=== PATIENT | female | born 2000 | race Caucasian/White ===

== ENCOUNTER → 2020-06-05 | Outpatient (CLI) | payer MEDICAID, SELFPAY ==
[2020-06-05 10:22] VITALS: BMI 20.9
[2020-06-07 06:08] LABS: Chlamydia By Nucleic Acid AMP Negative (Negative)
[2020-06-07 12:16] LABS: Gonococcus By Nucleic Acid AMP Negative (Negative)
== END | disposition home or self-care (01) ==
PROVIDERS: PCP Pediatrics; Referring Provider Obstetrics & Gynecology; Visit Provider Obstetrics & Gynecology
DX: Z34.01 Encounter for supervision of normal first pregnancy, first trimester (principal)
CPT/HCPCS: 87491; 87591

== ENCOUNTER → 2020-06-19 09:10 | Outpatient (CLI) | payer MEDICAID, SELFPAY ==
[2020-06-05 10:22] VITALS: BMI 20.9
[2020-06-19 10:14] LABS: Absolute Lymphocyte Count 1.98 X10^3/uL (0.83-4.51); Absolute Neutrophil Count 5.4 X10^3/uL (2.0-7.7); Basophil# 0.04 X10^3/uL; Basophil% 0.5 % (0-1); Eosinophil# 0.33 X10^3/uL; Eosinophils% 3.9 % (0-5); Hematocrit 36.9 % (37-47); Hemoglobin 12.8 g/dL (12.0-15.0); Lymphocyte # 1.98 X10^3/ul (4.0); Lymphocyte % 23.2 % (19-41); Mean Corp Hgb Conc 34.7 g/dL (32-36); Mean Corpuscular Hgb 32.8 pg (27.0-32.0); Mean Corpuscular Volume 94.6 fL (81-99); Mean Platelet Vol. 10.9 fl (6.2-12.0); Monocyte# 0.76 X10^3/uL; Monocyte% 8.9 % (0-10); NRBC Flagged by Analyzer 0 % (0-5); Neutrophil # 5.41 X10^3/uL (2.7-7.7); Neutrophil % 63.1 % (47-70); Platelet Count 239 K/mm3 (150-450); RBC Distribution Width SD 41.4 fl (35.1-43.9); White Blood Count 8.6 K/mm3 (4.4-11.0)
[2020-06-19 10:46] LABS: Amphetamine Urine VISTA NEGATIVE (<1000 ng/mL); Barbiturate Urine VISTA NEGATIVE (< 200 ng/mL); Benzodiazepine Urine VISTA NEGATIVE (< 200 ng/mL); Cocaine Urine VISTA NEGATIVE (< 300 ng/mL); Ecstacy Urine VISTA NEGATIVE (< 500 ng/mL); Methadone Urine VISTA NEGATIVE (< 300 ng/mL); PCP Urine VISTA NEGATIVE (< 25 ng/mL); THC Urine VISTA NEGATIVE (< 50 ng/mL); Vista UDS pH Range 6
[2020-06-19 11:32] LABS: HIV - WCH Non-Reactive (Nonreactive); Hepatitis B Surface Antigen Non-Reactive (Nonreactive); Hepatitis C Antibody Non-Reactive (Nonreactive); Rubella IgG Reactive (Nonreactive); Syphilis Antibodies Non-reactive
== END ==
PROVIDERS: Obstetrics & Gynecology; PCP Pediatrics; Referring Provider Obstetrics & Gynecology; Visit Provider Obstetrics & Gynecology
DX: Z34.81 Encounter for supervision of other normal pregnancy, first trimester (principal)
CPT/HCPCS: 36415; 80307; 85025; 86703; 86762; 86803; 86850; 86900; 86901; 87086; 87088; 87340

== ENCOUNTER → 2020-10-09 11:53 | Outpatient (CLI) | payer MEDICAID, SELFPAY ==
[2020-09-19 10:32] VITALS: BMI 21.6
[2020-10-09 12:46] LABS: Absolute Lymphocyte Count 1.97 X10^3/uL (0.83-4.51); Absolute Neutrophil Count 7.9 X10^3/uL (2.0-7.7); Basophil# 0.05 X10^3/uL; Basophil% 0.4 % (0-1); Eosinophil# 0.52 X10^3/uL; Eosinophils% 4.6 % (0-5); Hematocrit 34.2 % (37-47); Hemoglobin 11.6 g/dL (12.0-15.0); Lymphocyte # 1.97 X10^3/ul (0.83-4.51); Lymphocyte % 17.3 % (19-41); Mean Corp Hgb Conc 33.9 g/dL (32-36); Mean Corpuscular Hgb 32.4 pg (27.0-32.0); Mean Corpuscular Volume 95.5 fL (81-99); Mean Platelet Vol. 11.4 fl (6.2-12.0); Monocyte# 0.86 X10^3/uL; Monocyte% 7.5 % (0-10); NRBC Flagged by Analyzer 0 % (0-5); Neutrophil % 69.1 % (47-70); Platelet Count 259 K/mm3 (150-450); RBC Distribution Width CV 12.7 % (11.6-14.6); Red Blood Count 3.58 M/mm3 (4.2-5.4); White Blood Count 11.4 K/mm3 (4.4-11.0)
[2020-10-09 12:55] LABS: Glucose Challenge Gest 1H 50g 110 mg/dL (70-140)
== END ==
PROVIDERS: Obstetrics & Gynecology; Referring Provider Obstetrics & Gynecology; Visit Provider Obstetrics & Gynecology
DX: Z34.02 Encounter for supervision of normal first pregnancy, second trimester (principal); Z13.1 Encounter for screening for diabetes mellitus
CPT/HCPCS: 36415; 82950; 85025

== ENCOUNTER → 2020-12-04 08:04 | Outpatient (CLI) | payer MEDICAID, SELFPAY ==
--- NOTE | 2020-12-04 08:09 | US_ITS ---
STUDY: SECOND AND THIRD TRIMESTER OBSTETRICAL ULTRASOUND - LIMITED REASON FOR EXAM: Female, 20 years old . growth. LMP: 04/02/2020. PRIOR ULTRASOUND: None. TECHNIQUE: Transabdominal TECHNICAL QUALITY: Adequate. FINDINGS: There is a single intrauterine fetus. The fetus is in a cephalic presentation. There is demonstrated cardiac activity with a heart rate of 141 bpm. There is a normal amniotic fluid volume. The largest amniotic fluid pocket measures 7.6 cm. The amniotic fluid index (FABRIZIO) is 20 cm. The placenta is posterior and fundal in location and is not low lying. There are Grade 2 placental changes. The cervix measures 3.4 cm in length. BIOMETRY: BPD: 8.2 cm: 32 weeks, 6 days HC: 29.99 cm: 33 weeks, 1 days AC: 29.56 cm: 33 weeks, 3 days FL: 6.63 cm: 34 weeks, 0 days Age by LMP: 35 weeks, 1 days. MASON by LMP: 01/07/2021. age by current US: 33 weeks, 2 days. MASON by current US: 01/20/2021. Estimated weight: 2263 grams, +/- 339 grams, 15 percentile. US/OB Limited With Biometrics IMPRESSION: Single live intrauterine gestation with a mean gestational age of 33 weeks and 2 days. Electronically Signed: Boyd Buck MD at 10:49 EDT , Service support ,
== END ==
PROVIDERS: Referring Provider Obstetrics & Gynecology; Visit Provider Obstetrics & Gynecology
DX: Z34.02 Encounter for supervision of normal first pregnancy, second trimester (principal)
CPT/HCPCS: 76816

== ENCOUNTER 2020-12-10 09:00 | Outpatient (CLI) | payer MEDICAID, SELFPAY ==
[2020-12-10 09:12] VITALS: BP 115/76; PULSE 84; TEMP 36.8; O2SAT 99; BMI 26.2
[2020-12-10 09:49] LABS: ROM Internal Control Test YES-OK TO RESULT pt. (Internal QC); ROM Patient Test Negative (Negative)
--- NOTE | 2020-12-10 10:19 | OB.TRI.PN_ITS ---
Progress Notes Date of Service: 12/10/20 Progress Note: Patient presents for triage evaluation secondary to possible ROM FHT: 140 Moderate variability reactive no decelerations category I tracing [place]: no regular Contractions Assessment and plan: membranes intact false labor negative ROM Reactive NST, reassuring maternal and status patient discharged to home to follow-up as schedule. See problem list details for additional plan information. Laboratory Studies: Laboratory Tests 12/10/20 Range/Units 09:15 Vag Amniotic Fld Detect Negative (Negative) Charges/Coding Procedures Urinary/Genital 52xxx-59xxx: 14539-11 non-stress test Interp
== END 2020-12-10 10:05 | disposition home or self-care (01) ==
LOC: WPOUT 09:10 → WP 09:10
PROVIDERS: Referring Provider Obstetrics & Gynecology; Visit Provider Obstetrics & Gynecology
DX: Z03.71 Encounter for suspected problem with amniotic cavity and membrane ruled out (principal)
CPT/HCPCS: 59025; 59050; 84112

== ENCOUNTER → 2020-12-13 | Outpatient (CLI) | payer MEDICAID, SELFPAY | END | disposition home or self-care (01) | PROVIDERS: Visit Provider Obstetrics & Gynecology | DX: Z34.02 Encounter for supervision of normal first pregnancy, second trimester (principal) | CPT/HCPCS: 87081 ==

== ENCOUNTER 2020-12-20 10:30 | Outpatient (CLI) | payer MEDICAID, SELFPAY ==
[2020-12-20 10:39] VITALS: BMI 25.7
[2020-12-20 10:44] VITALS: BP 113/59; PULSE 78; TEMP 36.5; O2SAT 98
[2020-12-20 10:48] VITALS: BP 113/59; PULSE 78; TEMP 36.5
[2020-12-20 11:12] LABS: ROM Internal Control Test YES-OK TO RESULT pt. (Internal QC); ROM Patient Test Negative (Negative)
--- NOTE | 2020-12-24 06:58 | OB.TRI.PN_ITS ---
Progress Notes Progress Note: Patient presents for triage evaluation secondary to false labor FHT: 130 Moderate variability reactive no decelerations category I tracing [place]: q 3-5 Contractions Assessment and plan: false labor no cervical change Reactive NST, reassuring maternal and status patient discharged to home to follow-up as scheduled. See problem list details for additional plan information. Laboratory Studies: Laboratory Tests 12/20/20 Range/Units 10:45 Vag Amniotic Fld Detect Negative (Negative) Charges/Coding Procedures Urinary/Genital 52xxx-59xxx: 07713-43 non-stress test Interp Assessment & Plan (1) False labor:
== END 2020-12-20 11:27 | disposition home or self-care (01) ==
LOC: WPOUT 10:38 → WP 10:38
PROVIDERS: Obstetrics & Gynecology; Visit Provider Obstetrics & Gynecology
DX: O47.9 False labor, unspecified (principal); Z3A.00 Weeks of gestation of pregnancy not specified
CPT/HCPCS: 59025; 59050; 84112; 99218; G0378

== ENCOUNTER → 2020-12-28 10:21 | Outpatient (CLI) | payer MEDICAID, SELFPAY | PROVIDERS: Referring Provider Obstetrics & Gynecology; Visit Provider Obstetrics & Gynecology | DX: Z34.93 Encounter for supervision of normal pregnancy, unspecified, third trimester (principal); Z3A.37 37 weeks gestation of pregnancy | CPT/HCPCS: 87635; C9803; U0005; U0003 ==

== ENCOUNTER → 2020-12-29 14:25 | Outpatient (CLI) | payer MEDICAID, SELFPAY ==
--- NOTE | 2020-12-29 14:26 | US_ITS ---
STUDY: SECOND AND THIRD TRIMESTER OBSTETRICAL ULTRASOUND - LIMITED REASON FOR EXAM: Female, 20 years old. growth. Small for dates. LMP: 04/02/2020 PRIOR ULTRASOUND: 02/03/2021 TECHNIQUE: Transabdominal TECHNICAL QUALITY: Adequate. FINDINGS: There is a single intrauterine fetus. The fetus is in a cephalic presentation. There is demonstrated cardiac activity with a heart rate of 138 bpm. There is a normal amniotic fluid volume. The largest amniotic fluid pocket measures 5.85 cm. The amniotic fluid index (FABRIZIO) is 14.3 cm. The placenta is posterior in location and is not low lying. There are Grade 2 placental changes. The cervix is obscured. BIOMETRY: BPD: 8.86 cm: 35 weeks, 5 days HC: 32.26 cm: 36 weeks, 3 days AC: 32.13 cm: 36 weeks, 0 days FL: 7.16 cm: 36 weeks, 4 days Age by LMP: 38 weeks, 5 days. MASON by LMP: 01/07/2021. age by prior US: 36 weeks, 6 days. MASON by prior US: 01/20/2021. age by current US: 36 weeks, 3 days. MASON by current US: 01/23/2021. Estimated weight: 2906 grams, +/- 436 grams, 15 percentile. Gender: Indeterminant US/OB Limited With Biometrics IMPRESSION: 1. Live single intrauterine at 36 weeks, 3 days. MASON is 01/23/2021. There is adequate interval growth since the initial ultrasound. 2. EFW of 2906 g. 3. FABRIZIO of 14.3 cm. 4. Posterior grade 2 placenta. 5. Vertex presentation. Electronically Signed: Chandler Guadalupe DO at 16:05 EDT Tel [phone], Service support ,
== END ==
PROVIDERS: Referring Provider Obstetrics & Gynecology; Visit Provider Obstetrics & Gynecology
DX: O26.843 Uterine size-date discrepancy, third trimester (principal); Z3A.36 36 weeks gestation of pregnancy
CPT/HCPCS: 76816

== ENCOUNTER 2021-01-02 18:10 | Inpatient (IN) | payer MEDICAID, SELFPAY ==
[2021-01-02] VITALS (30 sets, daily range): BP systolic 108–137; BP diastolic 55–82; PULSE 65–98; TEMP 35.8–37.5; O2SAT 83–100; BMI 26.4
[2021-01-02 18:07] LABS: ROM Internal Control Test YES-OK TO RESULT pt. (Internal QC)
[2021-01-02 18:08] LABS: ROM Patient Test POSITIVE (Negative)
[2021-01-02] MEDS: Lactated Ringers 1,000 ML 50 ML IV (18:34)
[2021-01-02 18:42] LABS: Absolute Lymphocyte Count 2.05 X10^3/uL (0.83-4.51); Absolute Neutrophil Count 10.9 X10^3/uL (2.0-7.7); Basophil# 0.06 X10^3/uL; Basophil% 0.4 % (0-1); Eosinophil# 0.34 X10^3/uL; Eosinophils% 2.3 % (0-5); Hematocrit 37.5 % (37-47); Hemoglobin 12.5 g/dL (12.0-15.0); Lymphocyte # 2.05 X10^3/ul (0.83-4.51); Mean Corp Hgb Conc 33.3 g/dL (32-36); Mean Corpuscular Volume 93.1 fL (81-99); Mean Platelet Vol. 10.7 fl (6.2-12.0); Monocyte% 8.2 % (0-10); NRBC Flagged by Analyzer 0 % (0-5); Neutrophil # 10.88 X10^3/uL (2.7-7.7); Neutrophil % 74.3 % (47-70); Platelet Count 396 K/mm3 (150-450); RBC Distribution Width CV 12.7 % (11.6-14.6); RBC Distribution Width SD 43.4 fl (35.1-43.9); Red Blood Count 4.03 M/mm3 (4.2-5.4); White Blood Count 14.6 K/mm3 (4.4-11.0)
--- NOTE | 2021-01-02 20:11 | HP.PCM.OB_ITS ---
HPI - General General Date of Admission: 01/02/21 HPI Narrative INA SAMANIEGO, is a 20 F at 39/2 who presents with rupture of membranes Maternal Data Information MASON Calculator Estimated Delivery Date Method Current WG Current Estimate 01/07/21 LMP (Certain) 39w 2d Other Estimates 01/12/21 Ultrasound #1 38w 4d PFSH PFSH Medical History (Updated 01/02/21 @ 20:[address] Radha Martin MD) Anxiety Genital herpes affecting Lab test negative for COVID-19 virus Home Medications valacyclovir 1 gram tablet 1,000 mg PO BID PRN 5 Days #20 tab 08/13/19 [Rx Last Taken 01/02/21] sertraline 50 mg tablet 50 mg PO DAILY #30 tab 12/07/20 [Rx Last Taken 01/02/21] Allergy/AdvReac Type Severity Reaction Status Date / Time No Known Allergies Allergy Verified 12/28/20 10:50 Family History Aunt Breast cancer Surgical History No significant past surgical history Social History adopted: No household members: family housing: house current occupational status: unemployed pets and animals: Yes sexually active: Yes Smoking Status: Light Smoker (<10/day) second hand exposure: Yes alcohol intake: never caffeine: Yes what type of physical activity do you participate in: none seatbelt use: always do you feel safe at home: Yes additional social history: Rustam Roberson History 1 Elective abortions Hx Para 0 Spontaneous abortions Hx # Term Pregnancies Ectopic pregnancies Hx # Pregnancies Multiple births # of living children Visit Details Expected Delivery Route/Plan Labor Preferences- CB/BF classes: encouraged, may do through [place] labor support person: Da labor intervention preferences: open to standard interventions pain management options preferred: epidural cut cord/dad catch: yes : yes PP control planned: discussed discussed possible routes of delivery and associated risks: discussed possible delivery modalities and possible indications for each including R/B/A of , VAVD, FAVD, and CS. questions answered. special requests: [] Plans covid vaccine: non immune counseled regarding risk of covid in vs vaccination and declined vaccination flu vaccine: no tdap vaccine: 11/15 rhogam: NA LARC form signed: yes movement and labor precautions reviewed. Problem list reviewed and updated with the most current plan of care details and appropriate orders placed. Relevant counseling for the gestational age provided. Continue routine care and follow up unless otherwise noted in visit notes/problem list details OB Flowsheet Initial Weight: 128 lb Date -?-?-?-?-?-?-?-?-?-?-?-?- EGA Weight BP Urine Prot -?-?-?-?-?-?-?-?-?-?-?-?- Glucose FHR FuHt Pres Dilation -?-?-?-?-?-?-?-?-?-?-?-?- Effaced St Visit Note 06/05/20 -?-?-?-?-?-?-?-?-?-?-?-?- 9w 1d 127 lb 8 oz (-8 oz) 120/70 -?-?-?-?-?-?-?-?-?-?-?-?- 160 -?-?-?-?-?-?-?-?-?-?-?-?- GP - CRL 16mm co nsistent with LMP. 07/04/20 -?-?-?-?-?-?-?-?-?-?-?-?- 13w 2d 129 lb (+16 oz) 110/82 Negative -?-?-?-?-?-?-?-?-?-?-?-?- Negative 164 -?-?-?-?-?-?-?-?-?-?-?-?- MH-No Vb, LOF. Nausea improved. Reviewed normal labs. MFM US ordered. 08/02/20 -?-?-?-?-?-?-?-?-?-?-?-?- 17w 3d 132 lb (+4 lb) 110/72 Negative -?-?-?-?-?-?-?-?-?-?-?-?- Negative 145 -?-?-?-?-?-?-?-?-?-?-?-?- GP - no cramping or bleeding. Having a girl! Christy Macias. Anatomy scan 08/21. 08/21/20 -?-?-?-?-?-?-?-?-?-?-?-?- 20w 1d 137 lb 2 oz (+9 lb 2 oz) 108/62 Negative -?-?-?-?-?-?-?-?-?-?-?-?- Negative 156 -?-?-?-?-?-?-?-?-?-?-?-?- -No VB, LOF. F eeling FM now. Had MFM US earlier today 09/19/20 -?-?-?-?-?-?-?-?-?-?-?-?- 24w 2d 141 lb (+13 lb) 116/82 Trace -?-?-?-?-?-?-?-?-?-?-?-?- Negative -?-?-?-?-?-?-?-?-?-?-?-?- SM- no vb lof go od fm no regular ctx 10/17/20 -?-?-?-?-?-?-?-?-?-?-?-?- 28w 2d 150 lb 4 oz (+22 lb 4 oz) 120/62 Negative -?-?-?-?-?-?-?-?-?-?-?-?- Negative 154 28 -?-?-?-?-?-?-?-?-?-?-?-?- -No VB, LOF. good FM. Declines tdap. LARC signed. Nl 28 wk labs. 10/30/20 -?-?-?-?-?-?-?-?-?-?-?-?- 30w 1d 148 lb (+20 lb) 102/82 Negative -?-?-?-?-?-?-?-?-?-?-?-?- Negative 145 30 -?-?-?-?-?-?-?-?-?-?-?-?- SM- no vb lof go od fm no reuglar ctx 11/15/20 -?-?-?-?-?-?-?-?-?-?-?-?- 32w 3d 151 lb 6 oz (+23 lb 6 oz) 118/72 Negative -?-?-?-?-?-?-?-?-?-?-?-?- Negative 145 32 -?-?-?-?-?-?-?-?-?-?-?-?- GP - no LOF, VB, dFM, ctx. TDAP today. 11/30/20 -?-?-?-?-?-?-?-?-?-?-?-?- 34w 4d 155 lb (+27 lb) 120/74 -?-?-?-?-?-?-?-?-?-?-?-?- 145 32 -?-?-?-?-?-?-?-?-?-?-?-?- SM- no vb lof go od fm no regular ctx check growth us 12/07/20 -?-?-?-?-?-?-?-?-?-?-?-?- 35w 4d 158 lb 6 oz (+30 lb 6 oz) 120/76 Negative -?-?-?-?-?-?-?-?-?-?-?-?- Negative 150 35 -?-?-?-?-?-?-?-?-?-?-?-?- GP - no LOF, VB, DFM, ctx. Discussed anxiety - started ginaofkory. Evgeny nicholson. 12/13/20 -?-?-?-?-?-?-?-?-?-?-?-?- 36w 3d 155 lb (+27 lb) 110/72 Negative -?-?-?-?-?-?-?-?-?-?-?-?- Negative 130 36 Cephalic 0 .5 -?-?-?-?-?-?-?-?-?-?-?-?- 50 -3 GP - no LO F, VB, DFM, ctx. Discussed labor preferences and routes of delivery 12/22/20 -?-?-?-?-?-?-?-?-?-?-?-?- 37w 5d 157 lb (+29 lb) 120/72 Negative -?-?-?-?-?-?-?-?-?-?-?-?- Negative 130 36 Cephalic 1 -?-?-?-?-?-?-?-?-?-?-?-?- SM- no vb lof go od fm no reuglar ctx 12/28/20 -?-?-?-?-?-?-?-?-?-?-?-?- 38w 4d 160 lb (+32 lb) 120/68 Negative -?-?-?-?-?-?-?-?-?-?-?-?- Negative 140 36 Cephalic -?-?-?-?-?-?-?-?-?-?-?-?- SM- no vb lof go od fm no reuglar ctx same FH will repeat us 01/02/21 -?-?-?-?-?-?-?-?-?-?-?-?- 39w 2d 158 lb 11.725 oz (+30 lb 11.725 oz) 131/80 128/82 -?-?-?-?-?-?-?-?-?-?-?-?- -?-?-?-?-?-?-?-?-?-?-?-?- NST FHR Rate Baby A Baseline: 130 Variability:: Moderate Accelerations:: 15 x 15 Decelerations:: None NST Reactive:: Yes FHR Category:: Category I Uterine Activity:: q3-5min ROS Eyes Eyes: Reports systems reviewed and no addt'l complaints, except as documented ENT HEENT: Reports systems reviewed and no addt'l complaints, except as documented Cardiovascular Cardiovascular: Reports systems reviewed and no addt'l complaints, except as documented Respiratory/Chest Respiratory/Chest: Reports systems reviewed and no addt'l complaints, except as documented Gastrointestinal Gastrointestinal: Reports systems reviewed and no addt'l complaints, except as documented Genitourinary Genitourinary: Reports systems reviewed and no addt'l complaints, except as documented Musculoskeletal Musculoskeletal: Reports systems reviewed and no addt'l complaints, except as documented Integumentary Integumentary: Reports systems reviewed and no addt'l complaints, except as documented Neurologic Neurologic: Reports systems reviewed and no addt'l complaints, except as documented Psychiatric Psychiatric: Reports systems reviewed and no addt'l complaints, except as documented Endocrine Endocrinology: Reports systems reviewed and no addt'l complaints, except as documented Hematologic/Lymphatic Hematologic/Lymphatic: Reports systems reviewed and no addt'l complaints, except as documented Allergic/Immunologic Allergic/Immunologic: Reports systems reviewed and no addt'l complaints, except as documented Vital Signs Vital Signs Vital Signs: 01/02/21 18:09 01/02/21 18:10 01/02/21 19:15 Temperature 98.5 F Temperature Source Temporal Pulse Rate 75 Blood Pressure 131/80 H 128/82 H BP Systolic 131 128 BP Diastolic 80 82 Pulse Ox 98 01/02/21 19:16 01/02/21 19:17 Temperature 97.6 F L Temperature Source Temporal Pulse Rate 65 70 Blood Pressure BP Systolic BP Diastolic Pulse Ox 98 99 Weight Weight: 158 lb 11.725 oz Body Mass Index (BMI) 26.4 Physical Exam Const alert, oriented x3, no apparent distress, average body habitus, healthy appearing and well nourished HEENT normocephalic and moist oral mucous membranes Head and Scalp: atraumatic Eyes PERRL and EOMs intact bilaterally Neck full ROM Resp normal respiratory effort, no retractions and no use of accessory muscles Cardio regular rate and regular rhythm GI soft to palpation, non-tender and non-distended Extremity normal to inspection and full ROM Skin no rashes or lesions noted Neuro no focal motor deficits and no sensory deficits noted Psych mental status grossly normal, affect normal, speech normal and activity/motor behavior normal Labs Labs Labs: Blood Type O POSITIVE Antibody Screen NEGATIVE Hct 37.5 % (37-47) Hgb 12.5 g/dL (12.0-15.0) Obstetrics US Syphilis Total Ab Non-reactive Rubella IgG Antibody Reactive (Nonreactive) Hep Bs Antigen Non-Reactive (Nonreactive) Neisseria gonorrhoeae DNA ([facility]) Negative (Negative) HIV 1&2 Antibody Non-Reactive (Nonreactive) C.trachomatis DNA (PCR) Negative (Negative) Glucose 1 Hr 50 gm 110 mg/dL (70-140) Miscellaneous Test Assessment & Plan (1) Lab test negative for COVID-19 virus: (2) Uterine size-date discrepancy, third trimester: COMMENT: growth US nl (3) Tobacco smoking affecting : QUALIFIERS: Trimester: second trimester Qualified Code(s): O99.332 - Smoking (tobacco) complicating , second trimester COMMENT: patient has cut back since she found out; exposure to second hand smoke; 07/04 quit; NL growth 11/30/20 (4) Supervision of normal : QUALIFIERS: Normal : normal first Trimester: second trimester Qualified Code(s): Z34.02 - Encounter for supervision of normal first , second trimester COMMENT: PRR MASON: 01/07/21 Girl! Christy Macias Ficamilo: Da (5) Genital herpes affecting : QUALIFIERS: Trimester: second trimester Qualified Code(s): O98.312 - Other infections with a predominantly sexual mode of transmission complicating , second trimester; A60.09 - Herpesviral infection of other urogenital tract COMMENT: needs Valtrex starting at 36 weeks (6) Anxiety: COMMENT: not on medication- pt states that her dog helps her manage her anxiety; stable (7) : QUALIFIERS: Weeks of gestation: 37 weeks Qualified Code(s): Z3A.37 - 37 weeks gestation of COMMENT: genetic-low risk female, declines carrier testing, anatomy nl; GBS neg (8) Full-term premature rupture of membranes: PLAN: Patient presents with PROM, plan expectant management for , pitocin if needed. Pain management: plans epidural. GBS negative. Management of any complications: none I have reviewed the [facility] and made any clinically relevant updates.
[2021-01-02] MEDS: Lactated Ringers 500 ML 999 ML IV ×2 (21:01→21:55)
[2021-01-02] MEDS: fentaNYL-bupivacaine (epidural) 100 ML BAG EPIDURAL (21:47)
[2021-01-03] VITALS (34 sets, daily range): BP systolic 97–137; BP diastolic 50–85; PULSE 57–112; RESP 16–18; TEMP 35.9–36.9; O2SAT 82–100
[2021-01-03] MEDS: fentaNYL-bupivacaine (epidural) 100 ML BAG EPIDURAL ×2 (02:55→07:16)
[2021-01-03] MEDS: Lactated Ringers 1,000 ML 200 ML IV ×2 (02:55→08:28)
[2021-01-03] MEDS: Oxytocin 30 units/NS 500 ml 30 UNITS/500 ML IV.SOLN 334 UNITS IV (09:25)
[2021-01-03] MEDS: Methylergonovine 0.2 MG/ML Ampul IM (09:28)
--- NOTE | 2021-01-03 10:20 | EX.PCM.OBRPT ---
Assessment & Plan (1) Spontaneous vaginal delivery: COMMENT: GP IAL 01/03 Girl-Christy (2) Full-term premature rupture of membranes: (3) Lab test negative for COVID-19 virus: (4) Uterine size-date discrepancy, third trimester: COMMENT: growth US nl (5) False labor: (6) Tobacco smoking affecting : QUALIFIERS: Trimester: second trimester Qualified Code(s): O99.332 - Smoking (tobacco) complicating , second trimester COMMENT: patient has cut back since she found out; exposure to second hand smoke; 07/04 quit; NL growth 11/30/20 (7) Supervision of normal : QUALIFIERS: Normal : normal first Trimester: second trimester Qualified Code(s): Z34.02 - Encounter for supervision of normal first , second trimester COMMENT: PRR MASON: 01/07/21 Girl! Christy Macias Fiance: Da (8) Genital herpes affecting : QUALIFIERS: Trimester: second trimester Qualified Code(s): O98.312 - Other infections with a predominantly sexual mode of transmission complicating , second trimester; A60.09 - Herpesviral infection of other urogenital tract COMMENT: needs Valtrex starting at 36 weeks (9) Anxiety: COMMENT: not on medication- pt states that her dog helps her manage her anxiety; stable (10) : QUALIFIERS: Weeks of gestation: 37 weeks Qualified Code(s): Z3A.37 - 37 weeks gestation of COMMENT: genetic-low risk female, declines carrier testing, anatomy nl; GBS neg Maternal Data Information MASON Calculator Estimated Delivery Date Method Current WG Current Estimate 01/07/21 LMP (Certain) 39w 3d Other Estimates 01/12/21 Ultrasound #1 38w 5d Vaginal Delivery Maternal Presentation Maternal Presentation: Active Labor Maternal Presentation: 20-year-old G1, P0 at 39 weeks gestation admitted in active labor. Patient made cervical change to complete dilation without augmentation. Operative Information Date of Procedure: 01/03/21 Pre-Operative Diagnosis: Term , active labor Post-Operative Diagnosis: Same Surgery / Procedure Performed: Spontaneous Vaginal Delivery Type of Anesthesia: Epidural Drain: Madrigal to straight drain Estimated Blood Loss: 300 Findings Description of Procedure: Patient began pushing and delivered the head in the RELL presentation. The head was delivered atraumatically and a loose nuchal cord ?1 was identified and delivered through. The anterior and posterior shoulders delivered without complication followed by the rest of the infant and the was placed on the maternal abdomen. Delayed cord clamping was employed for approximately 60 seconds. Cord was clamped and cut and gentle traction was applied to the cord and the placenta delivered spontaneously immediately following it was noted to be intact with three-vessel cord. The perineum and vagina were inspected and a left periurethral laceration was noted and repaired with an interrupted stitch of 3-0 Vicryl Rapide suture. EBL was 300 cc. Patient and tolerated delivery well. Presentation: Vertex and RELL Amniotic Membrane Rupture Type: Spontaneous Amniotic Fluid Description: Clear Placental Delivery Description: Spontaneous Placenta Disposition: [facility] Cord Vessel Description: 3 Vessels Cord Entanglement: Around neck x 1, loose Nuchal Cord Compression: Without compression Infant A Gender: Female Delayed Cord Clamping: Yes Post Vaginal Delivery Medications Given After Delivery: IV Pitocin and IM Methergin Episiotomy Description: None Laceration: Periurethral Extnsion/lac (left) and 1st degree Complication Complications: None Procedures Urinary/Genital 52xxx-59xxx: 61161 Vaginal Delivery+PP Care([facility])
--- NOTE | 2021-01-03 10:23 | PCM.DC ---
Discharge Instructions Diet Discharge Diet: No restrictions Activity Discharge Activity: Return to Normal Activity, May Not Drive (while taking narcotic pain medications.) and May Shower May resume sexual activity in: 4-6 weeks Dressing / Incision Call your doctor if your incision/area has: Continuous Slow Oozing, Sudden Increased Bleeding, Increased Pain/ Swelling, Increased Redness and Foul Smelling Discharge Follow Up Care When: Call to make an appointment with your doctor in 6 weeks. If you had elevated Blood Pressure or 4th degree laceration you will need to be seen in 2 weeks. Test Results: Test results from this visit will be discussed in further detail at your follow-up appointment, if applicable. Discharge Plan Admission Admit Date/Time: 01/02/21 18:10 Primary Reason for Your Visit: Labor Attending Provider: Radha Martin Primary Care Provider: Care Physician,Jennie Primary Instructions Patient Instructions: After a Vaginal Discharge Orders/Prescriptions Prescriptions: New ibuprofen 800 mg tablet 800 mg PO Q8H PRN (Reason: pain) Qty: 60 RF: 1 Continued sertraline [Zoloft] 50 mg tablet 50 mg PO DAILY Qty: 30 RF: 6 valacyclovir [Valtrex] 1 gram tablet 1,000 mg PO BID PRN (Reason: genital herpes) 5 Days Qty: 20 RF: 3 Referrals / Follow Up: Care Physician,No Primary [Primary Care Provider] -
[2021-01-03] MEDS: 0.9% Saline Lock 10 ML Syringe IV ×2 (11:37→13:04)
[2021-01-03] MEDS: Ondansetron 4 MG/2 ML Vial IV (11:37)
[2021-01-03] MEDS: Acetaminophen 500 MG Tablet 1000 MG PO ×2 (13:03→21:41)
[2021-01-04 00:35] VITALS: BP 106/34; PULSE 71; RESP 18; TEMP 36.6
[2021-01-04 04:24] VITALS: BP 96/53; PULSE 72; RESP 16
[2021-01-04] MEDS: Acetaminophen 500 MG Tablet 1000 MG PO ×2 (06:19→14:45)
[2021-01-04 08:37] VITALS: BP 112/69; PULSE 72; RESP 14; TEMP 36.6; O2SAT 98
--- NOTE | 2021-01-04 08:45 | PCM.PN.OB ---
Subjective Subjective Patient doing well without complaints. Tolerating PO. Ambulating and voiding without difficulty. Breast feeding well. Denies chest pain, shortness of breath, calf pain/swelling, fevers, chills, lightheadedness. Objective Data Objective Data Vital Signs: Vital Signs Temp Pulse Resp BP Pulse Ox 98 F 72 16 96/53 L 99 01/04/21 00:35 01/04/21 04:24 01/04/21 04:24 01/04/21 04:24 01/03/21 11:44 Oxygen Delivery Method Room Air Weight: 158 lb 11.725 oz Body Mass Index (BMI) 26.4 Intake & Output: Intake and Output for Last 24 Hours 01/02/21 01/03/21 01/04/21 23:59 23:59 23:59 Intake Total 1202.0 / 1202.0 2887.5 / 2887.5 Output Total 2600 / 2600 Balance 1202.0 / 1202.0 287.5 / 287.5 Lab / Micro Data Result Diagrams: 01/02/21 18:34 ROS Constitutional Constitutional: Denies fever(s) Cardiovascular Cardiovascular: Denies chest pain, dyspnea or lightheadedness Gastrointestinal Gastrointestinal: Reports abdominal pain; Denies constipation or diarrhea Neurologic Neurologic: Denies dizziness or headache(s) Physical Exam Const alert, oriented x3, no apparent distress, average body habitus, healthy appearing and well nourished HEENT normocephalic Head and Scalp: atraumatic Eyes PERRL and EOMs intact bilaterally Neck full ROM Lymph Lymphatic: no lymphadenopathy noted Resp normal respiratory effort, no retractions and no use of accessory muscles Cardio regular rate GI soft to palpation, non-tender and non-distended Palpation: other Other Details: fundus firm Extremity normal to inspection and no clubbing, cyanosis or edema Skin no rashes or lesions noted Neuro no focal motor deficits and no sensory deficits noted Psych mental status grossly normal, affect normal and speech normal Assessment & Plan (1) Vaginal delivery: PLAN: s/p PPD # 1 1. routine post delivery care 2. breast feeding- support given 3. rh positive 4. rubella immune
[2021-01-04] MEDS: Sertraline 50 MG Tablet PO (10:25)
[2021-01-04 13:04] VITALS: BP 125/69; PULSE 74; RESP 16; TEMP 37.1; O2SAT 97
--- NOTE | 2021-01-04 14:01 | NURSING ---
This clinical instructor reviewed the documentation completed by Laura Chan student nurse and it is complete.
== END 2021-01-04 16:35 | disposition home or self-care (01) | DRG 560 ==
LOC: WPOUT 18:11 → WP 18:11
PROVIDERS: Admitting Provider Obstetrics & Gynecology; Referring Provider Obstetrics & Gynecology; Visit Provider Obstetrics & Gynecology
DX: O42.92 Full-term premature rupture of membranes, unspecified as to length of time between rupture and onset of labor (principal); O98.52 Other viral diseases complicating childbirth; Z3A.39 39 weeks gestation of pregnancy; Z37.0 Single live birth; Z79.899 Other long term (current) drug therapy; O99.344 Other mental disorders complicating childbirth; F41.9 Anxiety disorder, unspecified; A60.00 Herpesviral infection of urogenital system, unspecified; F17.200 Nicotine dependence, unspecified, uncomplicated; O99.334 Smoking (tobacco) complicating childbirth; O69.81X0 Labor and delivery complicated by cord around neck, without compression, not applicable or unspecified; O70.0 First degree perineal laceration during delivery
CPT/HCPCS: 59025; 59050; 84112; 85025; 86850; 86900; 86901; 99218; J7120; A4216; G0378; J2405

== ENCOUNTER → 2022-06-10 | Outpatient (CLI) | payer MEDICAID, SELFPAY ==
[2022-06-17 19:11] LABS: HPV Reflexed? NOT INDICATED
== END | disposition home or self-care (01) ==
LOC: LABSPEC 14:58
PROVIDERS: Visit Provider Obstetrics & Gynecology
DX: Z12.4 Encounter for screening for malignant neoplasm of cervix (principal)
CPT/HCPCS: 88175; G0145

== ENCOUNTER 2022-06-13 06:52 | Day surgery (SDC) | payer MEDICAID, SELFPAY ==
[2022-06-13] VITALS (7 sets, daily range): BP systolic 91–113; BP diastolic 50–65; PULSE 60–81; RESP 16–18; TEMP 36.2–36.7; O2SAT 99–100; BMI 25.5
[2022-06-13] MEDS: Lactated Ringers 1,000 ML 15 ML IV (07:46)
[2022-06-13] MEDS: Doxycycline 100 MG CAPSULE PO (07:46)
[2022-06-13 07:52] LABS: Absolute Lymphocyte Count 2.26 X10^3/uL (0.83-4.51); Absolute Neutrophil Count 4.2 X10^3/uL (2.0-7.7); Basophil# 0.05 X10^3/uL; Basophil% 0.6 % (0-1); Eosinophils% 6.5 % (0-5); Hematocrit 39.8 % (37-47); Hemoglobin 13.3 g/dL (12.0-15.0); Lymphocyte # 2.26 X10^3/ul (0.83-4.51); Lymphocyte % 29.2 % (19-41); Mean Corp Hgb Conc 33.4 g/dL (32-36); Mean Corpuscular Hgb 31.4 pg (27.0-32.0); Mean Corpuscular Volume 93.9 fL (81-99); Mean Platelet Vol. 10.8 fl (6.2-12.0); Monocyte# 0.74 X10^3/uL; Monocyte% 9.5 % (0-10); NRBC Flagged by Analyzer 0 % (0-5); Neutrophil # 4.17 X10^3/uL (2.7-7.7); Neutrophil % 53.8 % (47-70); Platelet Count 309 K/mm3 (150-450); RBC Distribution Width CV 12.2 % (11.6-14.6); RBC Distribution Width SD 41.9 fl (35.1-43.9); Red Blood Count 4.24 M/mm3 (4.2-5.4); White Blood Count 7.8 K/mm3 (4.4-11.0)
--- NOTE | 2022-06-13 08:45 | POC_PTH ---
PATIENT: INA BLANCO LOC: [facility] – [place], [place] U#:[id number] AGE/SX: 22/F ROOM: RE06/13/[address]: Dr. Annabella Garvin MD : 2000 BED: DIS: 06/13/2022 SPEC #: [id number] RECD: 06/13/22 09:25 STATUS: JOHN RAGLAND #: [id number] JEANNE: 06/13/22 08:[address]: Annabella Garvin DEPT: SURGICAL PATHOLOGY RECD BY: Steffi Beckwith ENTERED: 06/13/22 09:50 SP TYPE: PROD CONC OTHR DR: Dr. Juanhco Caldwell MD Tissues: A - Product of conception, NOS B - CYST Procedures: Surgery Specimen Level IV HEADER OPERATION: Dilation and curettage, suction, vaginal wall cystostomy PRE-OP DIAGNOSIS: Missed TISSUE SUBMITTED: A ? Products of conception, B ? Vaginal wall cyst MICROSCOPIC DIAGNOSIS A. Endometrium, curettage: Chorionic villi, decidualized stroma and trophoblastic cells consistent with products of conception. B. Vaginal wall cyst, biopsy: Benign epithelial cyst. AM:timothy 06/14/2022 MICROSCOPIC DESCRIPTION Slides are reviewed. GROSS DESCRIPTION A - Received in fixative is one container labeled with the patient's name and designated products of conception. The specimen consists of multiple irregular fragments of pink hemorrhagic soft tissue that in aggregate measure 5.0 x 6.0 x 1.0 cm. tissue is not identified. Custodial Supervisor tissue is submitted in two cassettes. The rest of the specimen is returned to patient as per protocol. B - Received in fixative is one container labeled with the patient's name and designated vaginal wall cyst. The specimen consists of a previously opened cyst measuring 1.0 x 0.5 x 0.2 cm. The specimen is bisected and submitted entirely in one cassette. / SJ:timothy 06/13/2022 TC:5 CPT: 39872 x2
--- NOTE | 2022-06-13 09:15 | HP.PCM_ITS ---
History and Physical Date of Admission: 06/13/22 Intake Vital Signs ? 06/10/2312:31 06/10/2312:37 Height 5 ft 5 in 5 ft 5 in Weight: 159 lb 4 oz ? BMI 26.4 ? BP 132/77 H ? 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 06/10/22 [History Confirmed 06/10/22] Last Menstrual Period: 04/14/22 Zika: Zika virus screening: Negative : No PFSH PFSH Medical History? Anxiety Genital herpes affecting Lab test negative for COVID-19 virus Surgical History? No significant past surgical history Family History? Aunt Breast cancer Social History? adopted:? No household members:? spouse, children and other details: FOB mother housing:? house number of children:? 1 current occupational status:? unemployed pets and animals:? Yes (FOB changes litter) pets and animals: cat(s) and dog(s) sexually active:? Yes Smoking Status:? Light Smoker (<10/day) second hand exposure:? Yes alcohol intake:? never substance use type:? does not use well-balanced diet:? about half the time caffeine:? Yes eating out:? 1-3 times/week what type of physical activity do you participate in:? none seatbelt use:? always do you feel safe at home:? Yes additional social history:? Spouse- Da History ? ? ? 2 ? Elective abortions ? Hx Para ? ? ? 1 ? Spontaneous abortions ? Hx # Term Pregnancies ? Ectopic pregnancies ? Hx # Pregnancies ? Multiple births ? # of living children ? ? ? 1 Past Pregnancies Del. Date Name GA/Weeks Outcome Route Bth Weight [facility] Christy 39 live - full term 6lbs 4oz Female ? ? [facility] Veronica ? Delivery Date: 01/03/21? Last Updated by: Maryan Watson ? ? ? admitted in active labor HPI NOB LMP 04/14 Details: INA BLANCO is a 22 year old who presents for New OB visit. she denies any bleeding or cramping, she has had a positive test for over a month.? On ultrasound there is confirmed miscarriage with large subchorionic hematoma taking up 3/4 or the sac. CRL 8 mm and large yolk sac. no fht and no color doppler seen.? OB Visit [facility] Calculator ? Estimated Delivery Date Method Current WG Current Estimate 01/19/23 LMP (Certain) 8w 1d Other Estimates 01/30/23 Ultrasound #1 6w 4d Comments: HIV: Urine Culture: Sequential Screen: NIPT Screen: discussed Estimated Due Date: 01/19/23 Expected Delivery Route/Plan Labor Preferences- CB/BF classes: [] labor support person: [] labor intervention preferences: [] pain management options preferred: [] cut cord/dad catch: [] : [] PP control planned: [] discussed possible routes of delivery and associated risks: [] special requests: [] Specific Issue/Plans Covid status: [] Flu vaccine: [] Tdap vaccine: [] Rhogam: [] LARC form signed: [] Problem list reviewed and updated with the most current plan of care details and appropriate orders placed.? Relevant counseling for the gestational age provided. Continue routine care and follow up unless otherwise noted in visit notes/problem list details Initial Weight:?Not Recorded Date -?-?-?-?-?-?-?-?-?-?-?-?- EGA Weight BP Urine Prot -?-?-?-?-?-?-?-?-?-?-?-?- Glucose FHR FuHt Pres Dilation -?-?-?-?-?-?-?-?-?-?-?-?- Effaced St Visit Note 06/10/22-?-?-?-?-?-?-?-?-?-?-?-?- 8w 1d 159 lb 4 oz 132/77 -?-?-?-?-?-?-?-?-?-?-?-?- ? -?-?-?-?-?-?-?-?-?-?-?-?- ? ? SM- 8 mm CRL with no FHT or color flow seen very large hematoma Menstrual History Last Menstrual Period: 04/14/22 Reported LMP: definite Normal amount/duration: Yes On hormonal BC at conception: No hCG+: 05/06/22 Antepartum Record Genetic Screening: Congenital Heart Defect: Other, Neural Tube Defect: Other, Hemoglobinopathy Or Carrier: Other, Cystic Fibrosis: Other, Chromosome Abnormality: Other, Korey-Sachs: Other, Hemophilia: Other, Intellectual Disability/Autism: Other, Recurrent Loss/Stillbirth: Other, Other Structural Defect: Other, Other Genetic Disease: Other and Maternal Metabolic Disorder: Other Infection History: Live with someone with TB or Exposed to TB: No, Patient or Partner has history of Genital Herpes: Yes, Rash or Viral illness since last mentrual period: No, Prior GBS-Infected child: No, History of STD: Yes, HIV Infection: No, History of Hepatitis: No, Recent travel outside of [place]: No and Concern for hepatitis exposure: No Medical History Medical History: Positive: Heart disease (inflammation seen in ER), Depression/ depression and Seasonal allergies and Negative: Diabetes, Hypertension, Auto-immune disorder, Kidney disease/UTI, Neurologic/epilepsy, Psychiatric, Hepatitis/liver disease, Varicosities/phlebitis, Thyroid dysfunction, Trauma/domestic violence, History of blood transfusions, D (Rh) Sensitized, Pulmonary (e.g.,TB,Asthma), Drug/latex allergies/reactions, Breast, Dye Weigher surgery, Operations/hospitalizations, Anesthetic complications, History of abnormal pap, Uterine anomaly/ching, Infertility, Anti-retroviral treatment, Relevant family history and Other ACOG First Trimester First Trimester: Desire for , Alcohol, Tobacco Cessation, Illicit/Recreational Drug/Substance Use, Intimate Partner Violence, Barriers to care, Unstable Housing, Communication Barriers, Environmental/Work Hazards, Anticipated Course of Care, Toxoplasmosis Precations, Use of Any medications, Sexual activity, Exercise, Dental Care, Sauna/Hot tub use, Seat Belt use, Childbirth classes/Hospital facilities, Travel, Indications for Ultrasound and Screening for Aneuploidy; Discussed Second Trimester Second Trimester: Signs and Symptoms of Labor, Selecting a care provider, Reproductive Life Planning & Contreception, Care Planning, Tobacco Cessation, Depression/Anxiety and Intimate Partner Violence Third Trimester Third Trimester: Pain Management Plans, Labor support person(s), Immediate Larc, Signs and Symptoms of Preeclampsia and Feeding No ROS Const Reports system reviewed and no additional complaints, except as documented, Reports fatigue and Denies fever(s) Eyes Reports system reviewed and no additional complaints, except as documented ENT Reports system reviewed and no additional complaints, except as documented Card Denies chest pain and Denies dyspnea Resp Reports system reviewed and no additional complaints, except as documented, Denies cough and Denies dyspnea GI Denies abdominal pain and Reports nausea Reports system reviewed and no additional complaints, except as documented Musc Reports system reviewed and no additional complaints, except as documented Skin/Breast Reports system reviewed and no additional complaints, except as documented Neuro Yes system reviewed and no additional complaints, except as documented Psych Reports system reviewed and no additional complaints, except as documented Endo Reports system reviewed and no additional complaints, except as documented and Reports fatigue Exam Const General: healthy appearing, comfortable and no acute distress Orientation: alert [facility] Head: normal to inspection, normocephalic and atraumatic Ears: hearing grossly normal bilaterally and external ears normal Nose: external nose normal and nares normal Mouth: oral mucosae normal Teeth and gingiva: dentition normal Eyes General: appearance normal, both eyes and all related structures Neck Neck: normal visual inspection, no lymphadenopathy and supple Thyroid: thyroid normal Chest Chest palpation & inspection: normal inspection of the chest Breast inspection: normal inspection of the breasts and normal inspection of the axillae Breast palpation: normal palpation of the breasts and normal palpation of the axillae Resp Effort & Inspection: normal respiratory effort GI Inspection: normal to inspection Palpation: soft and no hepatosplenomegaly General: bladder normal to palpation External Female Exam: normal external appearance and normal appearance of the urethra Urethra: normal appearance of the urethra Speculum Exam - Vagina: normal appearance of the vagina and normal vaginal discharge Speculum Exam - Cervix: normal appearance of the cervix Bimanual Exam- Vagina & Uterus: normal bimanual exam, bladder normal to palpation, non-tender and other Bimanual Exam- Adnexa, other: non-tender Skin General: no rashes or lesions noted Neuro Motor: muscle tone normal throughout and no movement abnormalities noted Extrem General: normal to inspection and full ROM Supplemental Info ACOG book given and patient encouraged to read about nutrition, exercise, weight gain, and food avoidance in . Coding Level of Care Code Off vis,est,level 4 Diagnoses Supervision of normal ? Z34.90 ? Z34.90 Genital herpes affecting ? O98.312; A60.09 ? ? ? Trimester: second trimester Anxiety? F41.9 Missed ? O02.1 Assessment and Plan Assessment and Plan (1) Supervision of normal : ?Status:?Acute ?Comment: MASON 01/19/23 PC-Christy, Spouse-Da (2) : ?Status:?Acute ?Comment: NIPT and carrier discussed. (3) Genital herpes affecting : ?Status:?Acute ?Qualifiers: ?Trimester:?second trimester? Qualified Code(s):?O98.312 - Other infections with a predominantly sexual mode of transmission complicating , second trimester; A60.09 - Herpesviral infection of other urogenital tract ?Comment: needs Valtrex starting at 36 weeks (4) Anxiety: ?Status:?Chronic ?Comment: was on zoloft and wellbutrin. patient stopped medication mid Apr. encouraged counseling. (5) Missed : ?Status:?Acute ?Comment: discussed medical vs surgical management.? patient to decide. ? ? ? Orders: Orders UPDATE- I have seen the patient and performed any clinically relevant updates to the history and physical exam. Annabella Garvin MD Assessment & Plan Assessment/Plan (1) Missed : PLAN: Plan UPDATE- I have seen the patient and performed any clinically relevant updates to the history and physical exam. Annabella Garvin MD
--- NOTE | 2022-06-13 09:16 | OP.PCM_ITS ---
Problems Associated Problem List Diagnoses (1) Missed : Report of Operation Date of Procedure: 06/13/22 Pre-Operative Diagnosis: see problem list Post-Operative Diagnosis: same Surgery/Procedure Performed:: Suction dilation and curettage, cystotomy of vaginal wall cyst Description of Surgical Findings:: no FHT present, Nonviable 8 weeks Surgeon: Annabella Garvin plastic jig and fixture builder: None Type of Anesthesia: MAC Special Medications: none Specimen's removed: POC Drains: none Estimated Blood Loss (mL): 50 Fluids Replaced: crystalloid Description of Procedure: Patient was taken to the operating room and placed under MAC local anesthesia. She was prepped and draped in the normal sterile fashion the dorsal lithotomy position. Bladder was drained of clear urine and anterior lip of the cervix was grasped and the uterus sounded to 9. Cervix was progressively dilated to allow passage of a 9mm suction curette. Progressive passes were made removing the retained products of conception without complication. Sharp curettage confirmed complete removal of the retained products. right upper vaginal wall cyst was also seen and incised with the bovie to unroof and drain mucous material, sent to pathology. hemostasis noted. All instruments were removed from the vagina and excellent hemostasis was noted and the patient was taken to recovery in stable condition. Grafts/Implants Used: none Complications none Admit VTE Documentation VTE Present on Admission: No VTE Mechan Device Prophylaxis: SCD's Procedures Urinary/Genital [id number]: [id number] Surg Trtmt missed Ab, 1TM
--- NOTE | 2022-06-13 09:20 | DCINST_ITS ---
Discharge Instructions Procedure D&C Diet Discharge Diet: No restrictions Activity Discharge Activity: Return to Normal Activity, May Shower and May Take a Tub Bath (after 1 week) May resume sexual activity in: 1-2 weeks Weight Bearing Status: Weight bearing as tolerated Lifting Restrictions: none Dressing / Incision Call your doctor if you observe: Fever of 101 or Higher, Using more than 1 pad per hour, Shortness of breath and Uncontrolled pain Follow Up Care Please Follow Up With: Annabella Garvin MD When: Call [phone] to schedule appointment. Test Results: Test results from this visit will be discussed in further detail at your follow- up appointment, if applicable. Discharge Plan Admission Attending Provider: Annabella Garvin Primary Care Provider: Juancho Caldwell Discharge Orders/Prescriptions Prescriptions: No Action NK Other Ambulatory Orders: CBC-Complete Blood Cnt No Diff (Routine) Timeframe: 20220611 Facility: [facility] - Location: Laboratory Ordered By: Dr. Annabella Garvin Type & Screen - PAT ONLY (Routine) Timeframe: 20220611 Facility: [facility] - Location: Laboratory Ordered By: Dr. Annabella Garvin Referrals / Follow Up: Juancho Caldwell MD [Primary Care Provider] - Disposition Disposition (needs filled in before D/C Order can be placed): Home, Self Care
--- NOTE | 2022-06-13 13:29 | SUR.PHASEII ---
called patient about left tongue ring- she said to just throw it away
== END 2022-06-13 10:10 | disposition home or self-care (01) ==
LOC: SDC 06:53 → AC 06:54
PROVIDERS: Anesthesiology; PCP Internal Medicine; Referring Provider Obstetrics & Gynecology; Visit Provider Obstetrics & Gynecology
PROC: (CPT 59820; principal; 2022-06-13 08:30)
DX: O02.1 Missed abortion (principal); O99.341 Other mental disorders complicating pregnancy, first trimester; F41.9 Anxiety disorder, unspecified; O99.711 Diseases of the skin and subcutaneous tissue complicating pregnancy, first trimester; L72.0 Epidermal cyst; O98.311 Other infections with a predominantly sexual mode of transmission complicating pregnancy, first trimester; A60.00 Herpesviral infection of urogenital system, unspecified; O99.331 Smoking (tobacco) complicating pregnancy, first trimester; F17.200 Nicotine dependence, unspecified, uncomplicated; Z3A.01 Less than 8 weeks gestation of pregnancy
CPT/HCPCS: 59820; 57135; 88304; 85025; 86850; 86900; 86901; 88305; J7120; J2405

== ENCOUNTER → 2022-08-16 | Outpatient (CLI) | payer MEDICAID, SELFPAY ==
--- NOTE | 2022-08-16 14:57 | US_ITS ---
STUDY: ULTRASOUND OF THE FEMALE PELVIS - COMPLETE REASON FOR EXAM: Female, 22 years old. Pelvic pain. Recent miscarriage. LMP: July 11, 2022. TECHNIQUE: Transabdominal and Transvaginal TECHNICAL QUALITY: Adequate. COMPARISON: None. FINDINGS: The uterus is anteverted and is in a midline position. The uterus measures 8 cm x 4.7 cm x 3.1 cm. There is a Nabothian cyst of the cervix. The endometrium measures 8.1 mm in thickness, and is heterogeneous (striated). There is no demonstrated endometrial mass. There is no demonstrated myometrial mass. I.U.D. - The patient does not have an I.U.D. The right ovary is visualized. The right ovary measures 3.6 cm x 2.9 cm x 2 cm. There is no right ovarian cyst or ovarian mass. There is no visualized right adnexal mass or complex lesion. There is normal arterial and normal venous vascularity. The left ovary is visualized. The left ovary measures 2.9 cm x 2.2 cm x 2.1 cm. There is no left ovarian cyst or ovarian mass. There is no visualized left adnexal mass or complex lesion. There is normal arterial and normal venous vascularity. There is no fluid in the cul-de-sac. The pre void volume of the bladder was 670 ml. US/Pelvic (Non ) IMPRESSION: Normal female pelvis. Electronically Signed: Boyd Buck MD at 15:21 EDT ,
== END | disposition home or self-care (01) ==
PROVIDERS: PCP Internal Medicine; Referring Provider Obstetrics & Gynecology; Visit Provider Obstetrics & Gynecology
DX: N94.10 Unspecified dyspareunia (principal)
CPT/HCPCS: 76830; 76856

== ENCOUNTER 2022-09-27 18:40 | Emergency (ER) | payer MEDICAID, SELFPAY ==
[2022-09-27 18:41] VITALS: BP 117/87; PULSE 108; RESP 19; TEMP 36.2; O2SAT 98; BMI 25.2
--- NOTE | 2022-09-27 18:59 | EX.ED.DYSGE1 ---
HPI History of Present Illness Chief Complaint: Nausea/Vomiting/Diarrhea Informant: patient and spouse/S.O. Narrative Narrative: Patient presents with nausea vomiting diarrhea and some abdominal cramping. Patient ate some chicken wings on Friday night. Her significant other ate part of 1 and thought they tasted bad. He has not gotten sick. However, the next morning the patient was nauseated and then it progressed to vomiting. Today she really cannot keep even liquids down. She has also had watery diarrhea. She gets some intermittent cramping across the lower abdomen. No localization of pain. No fevers. No urinary symptoms. Last menstrual cycle was a couple weeks ago normal and she is on control. No abdominal surgeries. Nothing really makes her symptoms better or worse trying to eat or drink does seem to induce more nausea and vomiting. [facility] Medical History Anxiety Back pain Chest pain Depression Genital herpes affecting Lab test negative for COVID-19 virus Scoliosis Smoker Wears glasses Home Medications norgestimate 0.25 mg-ethinyl estradiol 35 mcg tablet (Sprintec (28)) 1 tab PO DAILY #84 tabs 08/14/22 [Rx Last Taken Unknown] ondansetron 4 mg disintegrating tablet 4 mg PO Q8H PRN PRN Nausea #10 tabs 09/27/22 [Rx Last Taken Unknown] Allergy/AdvReac Type Severity Reaction Status Date / Time No Known Allergies Allergy Verified 09/27/22 18:46 Family History Aunt Breast cancer Surgical History History of dilatation and curettage No significant past surgical history Social History adopted: No household members: spouse, children and other details: FOB mother housing: house number of children: 1 current occupational status: unemployed pets and animals: Yes (FOB changes litter) pets and animals: cat(s) and dog(s) sexually active: Yes Smoking Status: Current some day smoker tobacco type: e-cigarettes second hand exposure: Yes alcohol intake: never substance use type: does not use well-balanced diet: about half the time caffeine: Yes eating out: 1-3 times/week what type of physical activity do you participate in: none seatbelt use: always do you feel safe at home: Yes additional social history: Spouse- Da CEJA ROS ED ROS Narrative A complete review of systems was performed and is negative except as documented in the history of present illness. Some specific details below. Constitutional: No recent fevers or chills. EYE: No visual complaints or pain. ENT: No difficulty swallowing. No swelling. No pain. No GERD. CV: No chest pain or palpitations. Respiratory: No dyspnea. No hemoptysis. No difficulty taking breaths. GI: Please see history of present illness. : No frequency dysuria or hematuria. Musculoskeletal: No recent trauma. No pains. Skin: No rash. Nondiaphoretic. Neuro: No weakness or numbness. Endocrine: No polyuria or polydipsia. EXAM Physical Exam Narrative Exam Narrative: CONSTITUTIONAL: Patient is nontoxic in appearance. The patient looks comfortable. HEENT: No notable trauma. Mucous membranes minimally dry. No sinus tenderness. No indication of pain with swallowing. EYES: No conjunctival injection. No proptosis. CARDIOVASCULAR: Regular rate. Regular rhythm. No notable murmur. No JVD. RESPIRATORY: No respiratory distress. Breathing is unlabored. No wheezes. No rhonchi. No rales. No pain with a deep breath. GASTROINTESTINAL: Not distended. Bowel sounds are normal to may be slightly increased. No notable tenderness. No guarding. No rebound. No palpable mass. No bruit. She states her abdomen is sore in the lower portion but I am not getting any tenderness. No right lower quadrant tenderness. No right upper quadrant tenderness. GENITOURINARY: No tenderness over the bladder. No CVA tenderness on either side.. MUSCULOSKELETAL: Atraumatic. No peripheral edema. NEUROLOGICAL: Patient is alert and appropriate. SKIN: No noted rashes. No diaphoresis. PSYCHIATRIC: Patient is calm. Mood is appropriate. Const Vital Signs: 09/27/22 18:41 09/27/22 21:11 Temperature 97.1 F L Temperature Source Temporal Pulse Rate 108 H Respiratory Rate 19 H 17 Blood Pressure 117/87 H Blood Pressure Mean 97 Pulse Ox 98 Oxygen Delivery Method Room Air Room Air MDM MDM MDM Narrative Medical decision making narrative: Patient CBC is normal. Patient's electrolytes are normal other than mildly low potassium that should self correct. Her LFTs are normal other than minimal elevation of alkaline phosphatase. Serum is negative. Patient's recheck. The nausea is better but she states when she gets up and walks around the nausea does come back a little bit. But she is now thirsty. She overall feels better. I will get her some Phenergan to see if that helps more. We will get her a p.o. challenge. Her exam really shows benign abdomen. Still no tenderness. Its not hurting or cramping at this time. I think we can get her home with meds for nausea. We discussed that if she has return of pain, localization of pain, fevers or other concerns she should return. At this time I do not see indication to do CT scan of the abdomen. Lab Data Attestation: I reviewed the patient's lab results. Labs: Laboratory Results - last 24 hr 09/27/22 09/27/22 09/27/22 19:07 19:07 19:07 WBC 7.8 RBC 4.77 Hgb 15.1 H Hct 45.0 MCV 94.3 MCH 31.7 MCHC 33.6 RDW Std Deviation 42.3 RDW Coeff of Nidia 12.1 Plt Count 293 MPV 10.6 Immature Gran % (Auto) 0.300 Neut % (Auto) 69.1 Lymph % (Auto) 17.0 L Cross % (Auto) 10.5 H Eos % (Auto) 2.7 Baso % (Auto) 0.4 Absolute Neuts (auto) 5.4 Absolute Lymphs (auto) 1.32 Nucleated RBC % 0 Sodium 139 Potassium 3.4 L Chloride 107 Carbon Dioxide 24.0 Anion Gap 8 BUN 11 Creatinine 0.80 Estim Creat Clear Calc 103.26 Est GFR (MDRD) Af Amer 115 Est GFR (MDRD) Non-Af 95 BUN/Creatinine Ratio 13.8 Glucose 92 Calcium 9.0 Total Bilirubin 0.30 AST 14 L ALT 19 Alkaline Phosphatase 138 H Total Protein 8.0 Albumin 3.7 Globulin 4.3 H Albumin/Globulin Ratio 0.9 Serum , Qual NEGATIVE Discharge Plan Triage Chief Complaint: Nausea/Vomiting/Diarrhea ED Provider: Roberto Rice Dx/Rx/DC Orders Clinical Impression: Nausea vomiting and diarrhea, Abdominal cramping Instructions: ED Vomiting and Diarrhea ... Prescriptions: New ondansetron [ondansetron] 4 mg tablet,disintegrating 4 mg PO Q8H PRN PRN (Reason: Nausea) Qty: 10 0RF No Action norgestimate-ethinyl estradiol [Sprintec (28)] 0.25-35 mg-mcg tablet 1 tab PO DAILY Qty: 84 4RF Primary Care Provider: Juancho Caldwell Referrals: Juancho Caldwell MD [Primary Care Provider] - 3-5 Days if not improving Disposition Disposition: Home, Self Care
[2022-09-27] MEDS: 0.9% Normal Saline 1,000 ML 1000 ML IV (19:10)
[2022-09-27] MEDS: Ondansetron 4 MG/2 ML Vial IV (19:10)
[2022-09-27 19:17] LABS: Absolute Lymphocyte Count 1.32 X10^3/uL (0.83-4.51); Absolute Neutrophil Count 5.4 X10^3/uL (2.0-7.7); Basophil# 0.03 X10^3/uL; Basophil% 0.4 % (0-1); Eosinophil# 0.21 X10^3/uL; Eosinophils% 2.7 % (0-5); Hemoglobin 15.1 g/dL (12.0-15.0); Lymphocyte # 1.32 X10^3/ul (0.83-4.51); Mean Corp Hgb Conc 33.6 g/dL (32-36); Mean Corpuscular Hgb 31.7 pg (27.0-32.0); Mean Corpuscular Volume 94.3 fL (81-99); Mean Platelet Vol. 10.6 fl (6.2-12.0); Monocyte# 0.82 X10^3/uL; Monocyte% 10.5 % (0-10); NRBC Flagged by Analyzer 0 % (0-5); Neutrophil # 5.38 X10^3/uL (2.7-7.7); Neutrophil % 69.1 % (47-70); Platelet Count 293 K/mm3 (150-450); RBC Distribution Width CV 12.1 % (11.6-14.6); RBC Distribution Width SD 42.3 fl (35.1-43.9); Red Blood Count 4.77 M/mm3 (4.2-5.4); White Blood Count 7.8 K/mm3 (4.4-11.0)
[2022-09-27 19:29] LABS: Internal QC Validated? YES +Cl - CLEAR BKGD; Pregnancy, Serum, hCG Quali. NEGATIVE Negative
[2022-09-27 19:37] LABS: ALB/GLOB Ratio 0.9 RATIO (0.9-2.4); AST(SGOT) 14 U/L (15-37); Alanine Aminotransfer ALT/SGPT 19 U/L (13-56); Albumin, Serum 3.7 g/dL (3.2-5.0); Alkaline Phosphatase 138 U/L (45-117); Anion Gap 8 (5-15); BUN 11 mg/dL (7-18); BUN/Creat Ratio 13.8 RATIO (10-20); Chloride 107 mmol/L (98-107); EST Glomerular Filtration Rate 95 mL/min (>60); Est Glom Filt Rate - Afr Amer 115 mL/min (>60); Estimated Creatinine Clearance 103.26 ml/min; Globulin 4.3 g/dL (2.2-4.2); Glucose 92 mg/dL (74-106); Potassium 3.4 mmol/L (3.5-5.1); Sodium Level 139 mmol/L (136-145)
[2022-09-27 21:11] VITALS: RESP 17
[2022-09-27] MEDS: proMETHazine 25 MG/ML Syringe 12.5 MG IM (21:30)
== END 2022-09-27 21:39 | disposition home or self-care (01) ==
PROVIDERS: Emergency Provider Emergency Medicine; PCP Internal Medicine; Visit Provider Emergency Medicine
DX: R11.2 Nausea with vomiting, unspecified (principal); R19.7 Diarrhea, unspecified; R10.30 Lower abdominal pain, unspecified; F17.290 Nicotine dependence, other tobacco product, uncomplicated
CPT/HCPCS: 80053; 84703; 85025; 96361; 96372; 96374; 99283; J7030; A4216; J2405

== ENCOUNTER 2022-12-04 15:31 | Emergency (ER) | payer MEDICAID, SELFPAY ==
[2022-12-04 15:32] VITALS: BP 125/87; PULSE 77; RESP 18; TEMP 36.4; O2SAT 99; BMI 25.3
--- NOTE | 2022-12-04 15:47 | MRI_ITS ---
STUDY: MRI LUMBAR SPINE WITHOUT CONTRAST REASON FOR EXAM: Female, 22 years old. Back pain, urinary incontinence x 2 TECHNIQUE: Standardized fat and water weighted pulse sequences were obtained in the sagittal and axial planes. COMPARISON: None FINDINGS: T12-L1: Normal endplates. Normal disc height, hydration and morphology. Normal bilateral facet joints. Normal central canal and bilateral lateral recesses. Normal bilateral intervertebral neural foramina. Normal lumbar lordosis. There is a levoscoliosis of the lumbar spine. Normal conus medullaris that terminates at the L1 level. L1-2: Normal endplates. Normal disc height, hydration and morphology. Normal bilateral facet joints. Normal central canal and bilateral lateral recesses. Normal bilateral intervertebral neural foramina. L2-3: Normal endplates. Normal disc height, hydration and morphology. Mild spurring of the bilateral facet joints. Normal central canal and bilateral lateral recesses. Normal bilateral intervertebral neural foramina. L3-4: Normal endplates. Normal disc height, hydration and morphology. Mild spurring of the bilateral facet joints. Normal central canal and bilateral lateral recesses. Normal bilateral intervertebral neural foramina. L4-5: Normal endplates. Normal disc height, hydration and morphology. Mild spurring of the bilateral facet joints. Normal central canal and bilateral lateral recesses. Normal bilateral intervertebral neural foramina. L5-S1: Normal endplates. Normal disc height, hydration and morphology. Normal bilateral facet joints. Normal central canal and bilateral lateral recesses. Normal bilateral intervertebral neural foramina. Normal visualized sacral ala. Normal visualized paraspinous soft tissue structures. MRI/Spine Lumbar (Routine) IMPRESSION: Scoliosis with mild facet spurring. Disc spaces are well preserved. No canal stenosis. Neural foramina are patent. Electronically Signed: Ghanshyam Rosado MD at 19:49 EDT ,
--- NOTE | 2022-12-04 15:48 | EDS_ITS ---
HPI History of Present Illness Chief Complaint: Back Informant: patient Narrative Narrative: Patient presents with acute on chronic back pain and incontinence. Patient states that she has history of scoliosis and chronic back pain. She has been following with a chiropractor in [place] twice a week. She states she just got x-ray results back that per her report shows a very short distance between her tailbone and her last vertebrae. This reportedly is putting pressure on the nerves to her legs. She was told by her chiropractor if she develops pain down her legs or incontinence she needs to go to emergency room. Patient states at work today she had urinary incontinence with no sensation that she needed to urinate. While in the waiting room she states she had a second episode. [facility] Medical History Anxiety Back pain Chest pain Depression Genital herpes affecting Lab test negative for COVID-19 virus Scoliosis Smoker Wears glasses Home Medications norgestimate 0.25 mg-ethinyl estradiol 35 mcg tablet (Sprintec (28)) 1 tab PO DAILY #84 tabs 08/14/22 [Rx Last Taken Unknown] ondansetron 4 mg disintegrating tablet 4 mg PO Q8H PRN PRN Nausea #10 tabs 09/27/22 [Rx Last Taken Unknown] cyclobenzaprine 10 mg tablet 10 mg PO TID PRN Muscle Spasm #20 TABLETS 12/04/22 [Rx Last Taken Unknown] naproxen 500 mg tablet (Naprosyn) 500 mg PO BID PRN pain #20 tabs 12/04/22 [Rx Last Taken Unknown] Allergy/AdvReac Type Severity Reaction Status Date / Time No Known Allergies Allergy Verified 12/04/22 15:33 Family History Aunt Breast cancer Surgical History History of dilatation and curettage No significant past surgical history Social History adopted: No household members: spouse, children and other details: FOB mother housing: house number of children: 1 current occupational status: unemployed pets and animals: Yes (FOB changes litter) pets and animals: cat(s) and dog(s) sexually active: Yes Smoking Status: Current some day smoker tobacco type: e-cigarettes second hand exposure: Yes alcohol intake: never substance use type: does not use well-balanced diet: about half the time caffeine: Yes eating out: 1-3 times/week what type of physical activity do you participate in: none seatbelt use: always do you feel safe at home: Yes additional social history: Spouse- Da ROS ROS ED Constitutional Constitutional ED: Denies chills or fever(s) Eyes Eyes: Denies change in vision or discharge from eye(s) ENT ENT ED: Denies discharge from eye(s), rhinorrhea or sore throat Cardiovascular Cardiovascular: Denies chest pain Respiratory/Chest Respiratory/Chest: Denies cough or dyspnea Gastrointestinal Gastrointestinal: Denies abdominal pain, nausea or vomiting Genitourinary Genitourinary ED: Reports other Details: Urinary incontinence x2 ; Denies dysuria Musculoskeletal Musculoskeletal: Reports back pain and extremity pain Integumentary Denies Abrasions or rash Neurologic Neurologic: Denies headache(s) or weakness Psychiatric Psychiatric: Denies anxiety or depression Endocrine Endocrinology: Denies polydipsia or polyuria Allergic/Immunologic Allergic/Immunologic ED: Denies lip swelling or urticaria EXAM Physical Exam Const Vital Signs: 12/04/22 15:32 12/04/22 16:34 12/04/22 18:00 Temperature 97.5 F L Temperature Source Temporal Pulse Rate 77 75 Respiratory Rate 18 18 16 Blood Pressure 125/87 H 121/78 H Blood Pressure Mean 99 92 Pulse Ox 99 100 Oxygen Delivery Method Room Air Room Air Positive well nourished and well developed General Appearance ED: well developed HEENT Reports moist mucous membranes Eyes EOMs intact bilaterally Neck no lymphadenopathy Resp normal respiratory effort and clear to auscultation bilaterally Cardio regular rate and regular rhythm GI normal to inspection, nondistended, normoactive bowel sounds Back/Spine Back/Spine Narrative: Mild tenderness in the low lumbar region midline as well as bilateral paraspinals. No focal point tenderness. Extremity normal to inspection Neuro oriented x3 Neuro Narrative: Good sensation in the bilateral lower extremities. 3+ left patellar reflex. 1- 2+ right patellar reflex. Strong distal pulses. Psych mental status grossly normal Skin no rashes or lesions noted MDM MDM MDM Narrative Medical decision making narrative: Labwork obtained to evaluate for leukocytosis, anemia, and electrolyte derangement. MRI of the lumbar spine ordered to evaluate for nerve impingement and cord impingement. Patient is given Toradol for pain Lab Data Attestation: I reviewed the patient's lab results. Labs: Laboratory Results - last 24 hr 12/04/22 16:05 WBC 7.7 RBC 4.27 Hgb 13.1 Hct 39.7 MCV 93.0 MCH 30.7 MCHC 33.0 RDW Std Deviation 41.2 RDW Coeff of Nidia 12.0 Plt Count 309 MPV 10.7 Immature Gran % (Auto) 0.300 Neut % (Auto) 48.5 Lymph % (Auto) 36.2 [place] % (Auto) 7.7 Eos % (Auto) 6.5 H Baso % (Auto) 0.8 Absolute Neuts (auto) 3.7 Absolute Lymphs (auto) 2.78 Nucleated RBC % 0 Sodium 138 Potassium 3.7 Chloride 108 H Carbon Dioxide 27.0 Anion Gap 3 L BUN 9 Creatinine 0.76 Estim Creat Clear Calc 108.69 Est GFR (MDRD) Af Amer 121 Est GFR (MDRD) Non-Af 100 BUN/Creatinine Ratio 11.8 Glucose 94 Calcium 9.0 Serum , Qual NEGATIVE Radiography Diagnostic Testing: Clinical Impression(s) from Imaging Studies Lumbar Spine MRI 12/04/22 15:47 IMPRESSION: Scoliosis with mild facet spurring. Disc spaces are well preserved. No canal stenosis. Neural foramina are patent. Electronically Signed: Ghanshyam Rosado MD at 19:49 EDT , Treatment and Re-Evaluation Narrative: CBC was normal white count at 7.7. Chemistry studies unremarkable. test negative. MRI of the lumbar spine obtained given her pain and loss of bladder control. She has scoliosis with mild facet spurring. Disc spaces are well-preserved. No canal stenosis and neural foramina are patent. Test results are discussed with the patient. I will write her prescription for Naprosyn and Flexeril to use for pain and spasms. Return instructions provided. Discharge Plan Triage Chief Complaint: Back ED Provider: Jazmín Bah Dx/Rx/DC Orders Clinical Impression: Back pain Instructions: ED Back Pain (Acute or Chronic) Prescriptions: New naproxen [Naprosyn] 500 mg tablet 500 mg PO BID PRN (Reason: pain) Qty: 20 0RF cyclobenzaprine 10 mg tablet 10 mg PO TID PRN (Reason: Muscle Spasm) Qty: 20 0RF No Action norgestimate-ethinyl estradiol [Sprintec (28)] 0.25-35 mg-mcg tablet 1 tab PO DAILY Qty: 84 4RF ondansetron [ondansetron] 4 mg tablet,disintegrating 4 mg PO Q8H PRN PRN (Reason: Nausea) Qty: 10 0RF Primary Care Provider: Juancho Caldwell Referrals: Juancho Caldwell MD [Primary Care Provider] - 1 Week Disposition Disposition: Home, Self Care
[2022-12-04 16:15] LABS: Absolute Lymphocyte Count 2.78 X10^3/uL (0.83-4.51); Absolute Neutrophil Count 3.7 X10^3/uL (2.0-7.7); Basophil# 0.06 X10^3/uL; Basophil% 0.8 % (0-1); Eosinophils% 6.5 % (0-5); Hematocrit 39.7 % (37-47); Hemoglobin 13.1 g/dL (12.0-15.0); Lymphocyte # 2.78 X10^3/ul (0.83-4.51); Lymphocyte % 36.2 % (19-41); Mean Corpuscular Hgb 30.7 pg (27.0-32.0); Mean Platelet Vol. 10.7 fl (6.2-12.0); Monocyte# 0.59 X10^3/uL; Monocyte% 7.7 % (0-10); NRBC Flagged by Analyzer 0 % (0-5); Neutrophil # 3.73 X10^3/uL (2.7-7.7); Neutrophil % 48.5 % (47-70); Platelet Count 309 K/mm3 (150-450); RBC Distribution Width SD 41.2 fl (35.1-43.9); Red Blood Count 4.27 M/mm3 (4.2-5.4); White Blood Count 7.7 K/mm3 (4.4-11.0)
[2022-12-04] MEDS: Ketorolac 30 MG/ML Syringe IV (16:28)
[2022-12-04 16:31] LABS: Internal QC Validated? YES +Cl - CLEAR BKGD; Pregnancy, Serum, hCG Quali. NEGATIVE Negative
[2022-12-04 16:33] LABS: Anion Gap 3 (5-15); BUN 9 mg/dL (7-18); BUN/Creat Ratio 11.8 RATIO (10-20); Chloride 108 mmol/L (98-107); Creatinine, Serum 0.76 mg/dL (0.55-1.02); EST Glomerular Filtration Rate 100 mL/min (>60); Est Glom Filt Rate - Afr Amer 121 mL/min (>60); Estimated Creatinine Clearance 108.69 ml/min; Glucose 94 mg/dL (74-106); Potassium 3.7 mmol/L (3.5-5.1); Sodium Level 138 mmol/L (136-145)
[2022-12-04 16:34] VITALS: BP 121/78; PULSE 75; RESP 18; O2SAT 100
[2022-12-04 18:00] VITALS: RESP 16
[2022-12-04 20:00] VITALS: RESP 16
== END 2022-12-04 20:06 | disposition home or self-care (01) ==
PROVIDERS: Emergency Provider Emergency Medicine; PCP Internal Medicine; Visit Provider Emergency Medicine
DX: M54.9 Dorsalgia, unspecified (principal); G89.29 Other chronic pain; F17.290 Nicotine dependence, other tobacco product, uncomplicated
CPT/HCPCS: 72148; 80048; 84703; 85025; 96374; 99283; A4216

== ENCOUNTER → 2022-12-24 | Outpatient (CLI) | payer MEDICAID, SELFPAY ==
[2022-12-24 11:39] LABS: hCG Titer Quant., Serum 488 mIU/mL (1-3)
== END | disposition home or self-care (01) ==
LOC: PAVLAB 10:51
PROVIDERS: PCP Internal Medicine; Referring Provider Obstetrics & Gynecology; Visit Provider Obstetrics & Gynecology
DX: O20.0 Threatened abortion (principal); Z3A.00 Weeks of gestation of pregnancy not specified
CPT/HCPCS: 36415; 84702

== ENCOUNTER → 2022-12-26 | Outpatient (CLI) | payer MEDICAID, SELFPAY ==
[2022-12-26 12:32] LABS: hCG Titer Quant., Serum 856 mIU/mL (1-3)
== END | disposition home or self-care (01) ==
PROVIDERS: PCP Internal Medicine; Referring Provider Obstetrics & Gynecology; Visit Provider Obstetrics & Gynecology
DX: O20.0 Threatened abortion (principal); Z3A.00 Weeks of gestation of pregnancy not specified
CPT/HCPCS: 36415; 84702

== ENCOUNTER → 2023-01-24 | Outpatient (CLI) | payer MEDICAID, SELFPAY ==
[2023-01-28 07:08] LABS: Chlamydia By Nucleic Acid AMP Negative (Negative); Gonococcus By Nucleic Acid AMP Negative (Negative)
== END | disposition home or self-care (01) ==
LOC: LABSPEC 16:47
PROVIDERS: PCP Internal Medicine; Referring Provider Advanced Practice Midwife; Visit Provider Advanced Practice Midwife
DX: Z34.90 Encounter for supervision of normal pregnancy, unspecified, unspecified trimester (principal); Z3A.00 Weeks of gestation of pregnancy not specified
CPT/HCPCS: 87086; 87088; 87491; 87591

== ENCOUNTER → 2023-01-29 | Outpatient (CLI) | payer MEDICAID, SELFPAY | END | disposition home or self-care (01) | PROVIDERS: PCP Internal Medicine; Visit Provider Nurse Practitioner Women's Health | DX: Z00.00 Encounter for general adult medical examination without abnormal findings (principal) ==

== ENCOUNTER → 2023-01-29 | Outpatient (CLI) | payer MEDICAID, SELFPAY ==
[2023-01-29 13:54] LABS: hCG Titer Quant., Serum 59350 mIU/mL (1-3)
--- NOTE | 2023-01-29 18:03 | US_ITS ---
STUDY: FIRST TRIMESTER OBSTETRICAL ULTRASOUND REASON FOR EXAM: Female, 22 years old VIABILITY LMP: 11/24/2022 TECHNIQUE: Transvaginal TECHNICAL QUALITY: Adequate. PRIOR ULTRASOUND: None. FINDINGS: There is visualization of a single gestational sac in a normal intrauterine position. The mean sac diameter (MSD) measures 32 mm, indicating an estimated gestational age (EGA) of 8 weeks, 3 days. The gestational sac shape is within normal limits. There is a visualized yolk sac. The yolk sac measures 4 mm. The placenta is non-visualized. There is visualization of a live embryo. The crown-rump length (CRL) measures 24 mm, indicating an estimated gestational age (EGA) of 8 weeks, 6 days. There is demonstrated cardiac activity with a heart rate of 171 bpm. The estimated gestation age (EGA) by LMP is 9 weeks, 3 days. The estimated date of delivery (MASON) by LMP is 08/31/2023. The estimated gestation age (EGA) by US is 8 weeks, 5 days. The estimated date of delivery (MASON) by US is 09/05/2023. The uterus measures 10.5 x 6.4 x 7.2 cm. There is no demonstrated uterine fibroid. The cervix is closed. The right ovary measures 4.0 x 4.1 x 3.8 cm. 3.5 cm of the round anechoic mass with increased through transmission of the right ovary consistent with a thecal lutein cyst. There is no visualized right adnexal mass or complex lesion. The left ovary measures 2.5 x 1.8 x 1.9 cm. There is no left ovarian cyst. There is no visualized left adnexal mass or complex lesion. There is no fluid in the cul de sac. US/Transvaginal w/Preg US IMPRESSION: Living intrauterine of 8 weeks 5 days as described above. Electronically Signed: Denis Rasheed MD at 19:05 EDT ,
== END | disposition home or self-care (01) ==
PROVIDERS: PCP Internal Medicine; Referring Provider Nurse Practitioner Women's Health; Visit Provider Nurse Practitioner Women's Health
DX: O26.859 Spotting complicating pregnancy, unspecified trimester (principal); Z3A.00 Weeks of gestation of pregnancy not specified
CPT/HCPCS: 36415; 76817; 84702

== ENCOUNTER → 2023-02-04 | Outpatient (CLI) | payer MEDICAID, SELFPAY ==
[2023-02-04 14:00] LABS: Absolute Lymphocyte Count 1.97 X10^3/uL (0.83-4.51); Absolute Neutrophil Count 4.6 X10^3/uL (2.0-7.7); Basophil# 0.04 X10^3/uL; Basophil% 0.5 % (0-1); Eosinophil# 0.27 X10^3/uL; Eosinophils% 3.5 % (0-5); Hematocrit 39.2 % (37-47); Hemoglobin 13.1 g/dL (12.0-15.0); Lymphocyte # 1.97 X10^3/ul (0.83-4.51); Lymphocyte % 25.6 % (19-41); Mean Corp Hgb Conc 33.4 g/dL (32-36); Mean Corpuscular Hgb 30.8 pg (27.0-32.0); Mean Corpuscular Volume 92.2 fL (81-99); Mean Platelet Vol. 10.4 fl (6.2-12.0); Monocyte# 0.77 X10^3/uL; NRBC Flagged by Analyzer 0 % (0-5); Neutrophil # 4.62 X10^3/uL (2.7-7.7); Neutrophil % 60.1 % (47-70); Platelet Count 297 K/mm3 (150-450); RBC Distribution Width CV 12.3 % (11.6-14.6); RBC Distribution Width SD 41.6 fl (35.1-43.9); Red Blood Count 4.25 M/mm3 (4.2-5.4); White Blood Count 7.7 K/mm3 (4.4-11.0)
[2023-02-04 15:05] LABS: NATERA MAILED SPECIMEN
[2023-02-04 15:46] LABS: HIV - WCH Non-Reactive (Nonreactive); Hepatitis B Surface Antigen Non-Reactive (Nonreactive); Hepatitis C Antibody Non-Reactive (Nonreactive); Rubella IgG Reactive (Nonreactive); Syphilis Antibodies Non-reactive
== END | disposition home or self-care (01) ==
LOC: PAVLAB 13:48
PROVIDERS: PCP Internal Medicine; Referring Provider Advanced Practice Midwife; Visit Provider Advanced Practice Midwife
DX: Z34.81 Encounter for supervision of other normal pregnancy, first trimester (principal); Z3A.00 Weeks of gestation of pregnancy not specified
CPT/HCPCS: 36415; 85025; 86703; 86762; 86780; 86803; 86850; 86900; 86901; 87340

== ENCOUNTER 2023-03-14 11:00 | Emergency (ER) | payer MEDICAID, SELFPAY ==
[2023-03-14 11:01] VITALS: BP 114/55; PULSE 77; RESP 16; TEMP 25; O2SAT 99; BMI 24.8
--- NOTE | 2023-03-14 11:26 | ED.VIS.FEGU ---
HPI HPI - Female History of Present Illness Chief Complaint: Vag Bld, Preg Informant: patient Pain Pain: Positive for Pelvic Pain Onset: Today Context: Sudden Onset Timing: Intermittent and Lasts (Approximately 1 hour) Quality: Positive for Cramping Location: Suprapubic Worsened by: - (Laying flat) Bleeding Issue: Positive for Vaginal bleeding Onset: Yesterday Context: Gradual Onset Current Severity: Mild Maximum Severity: Similar to period Associated Symptoms Associated Symptoms: Negative for Dysuria, Frequency or Hematuria Test: Positive P: 1 Ab: 1 Narrative Narrative: HavingPatient presents with vaginal bleeding and cramping that began last night. Patient states it came severe today. Patient states it is mainly over the suprapubic area. Patient states it is worse when she lies completely flat. Patient states it has been constant for the past hour but has been intermittent prior to that. Patient states that she had some bleeding this morning when she woke up that was similar to a menstrual period. Patient states that since that time it is now only mild bleeding. Patient is approximately 15 weeks . Patient is 3 para 1 with 1 spontaneous miscarriage. Patient states her blood type is O-. PFSH PFSH Medical History Anxiety Back pain Chest pain Depression Genital herpes affecting Lab test negative for COVID-19 virus Scoliosis Smoker Wears glasses Home Medications valacyclovir 500 mg tablet 500 mg PO BID 5 days #10 tabs 02/05/23 [Rx Last Taken Unknown] promethazine 12.5 mg tablet 12.5 mg PO Q6H PRN nausea and vomiting #60 tabs 02/19/23 [Rx Last Taken Unknown] sertraline 50 mg tablet (Zoloft) 50 mg PO DAILY #30 tabs 02/19/23 [Rx Last Taken Unknown] Allergy/AdvReac Type Severity Reaction Status Date / Time No Known Allergies Allergy Verified 03/14/23 11:01 Family History Aunt Breast cancer Surgical History History of dilatation and curettage No significant past surgical history Social History adopted: No household members: spouse, children and other details: VERN mother housing: house number of children: 1 current occupational status: unemployed pets and animals: Yes pets and animals: dog(s) history of recent travel: No sexually active: Yes Smoking Status: Current some day smoker tobacco type: e-cigarettes second hand exposure: Yes alcohol intake: never substance use type: does not use well-balanced diet: about half the time caffeine: Yes eating out: 1-3 times/week what type of physical activity do you participate in: none seatbelt use: always do you feel safe at home: Yes additional social history: Spouse- Da ROS ROS ED Constitutional Constitutional ED: Denies chills or fever(s) Eyes Eyes: Denies blurry vision or change in vision ENT ENT ED: Reports rhinorrhea; Denies sore throat Cardiovascular Cardiovascular: Denies chest pain or palpitations Respiratory/Chest Respiratory/Chest: Denies cough or dyspnea Gastrointestinal Gastrointestinal: Reports abdominal pain and nausea; Denies vomiting Genitourinary Genitourinary ED: Denies dysuria or hematuria Musculoskeletal Musculoskeletal: Denies back pain or neck pain Integumentary Denies abscess or rash Neurologic Neurologic: Denies headache(s) or weakness Allergic/Immunologic Allergic/Immunologic ED: Denies mouth swelling or urticaria EXAM Physical Exam Const Vital Signs: 03/14/23 11:01 Temperature 77 F L Temperature Source Temporal Pulse Rate 77 Respiratory Rate 16 Blood Pressure 114/55 L Blood Pressure Mean 74 Pulse Ox 99 Oxygen Delivery Method Room Air Positive well nourished and well developed General Appearance ED: well developed and NAD HEENT Reports moist mucous membranes Neck supple and no JVD Resp normal respiratory effort and clear to auscultation bilaterally Cardio regular rate and regular rhythm GI soft to palpation and non-distended Palpation: tender LLQ and suprapubic Neuro oriented x3, CN's II-XII intact bilaterally and no sensory deficits noted Sensorium / Orientation: alert Motor Exam: strength 5/5 throughout Psych mental status grossly normal MDM MDM MDM Narrative Medical decision making narrative: Differential diagnosis includes threatened miscarriage, incomplete miscarriage, and urinary tract infection. Pelvic ultrasound will be obtained to assess for viability. CBC will be obtained to assess for leukocytosis and anemia. Urinalysis will be obtained to assess for urinary tract infection. Quantitative hCG will be obtained to assess for . Lab Data Attestation: I reviewed the patient's lab results. Lab results narrative: CBC was reviewed and was within normal limits. Quantitative hCG was reviewed and was [id number]. Urinalysis was reviewed. There is no evidence of urinary tract infection or hematuria. Labs: Laboratory Results - last 24 hr 03/14/23 03/14/23 12:10 12:30 WBC 8.9 RBC 4.01 L Hgb 12.6 Hct 37.5 MCV 93.5 MCH 31.4 MCHC 33.6 RDW Std Deviation 43.8 RDW Coeff of Nidia 12.8 Plt Count 250 MPV 10.8 Immature Gran % (Auto) 0.400 Neut % (Auto) 61.4 Lymph % (Auto) 25.6 [place] % (Auto) 7.4 Eos % (Auto) 4.5 Baso % (Auto) 0.7 Absolute Neuts (auto) 5.5 Absolute Lymphs (auto) 2.28 Nucleated RBC % 0 HCG, Quant 46510 H Urine Color Yellow Urine Clarity Sl. Cloudy Urine pH 7.0 Ur Specific [place] 1.010 Urine Protein Negative Urine Glucose (UA) Normal Urine Ketones Negative Urine Occult Blood Negative Urine Nitrite Negative Urine Bilirubin Negative Urine Urobilinogen Normal Ur Leukocyte Esterase Negative Urine RBC 0 SEEN Urine WBC 0 SEEN Ur Squamous Epith Cells 0-5 SEEN Urine Bacteria 1+ Urine Mucus 0 SEEN Radiography Diagnostic Testing: Clinical Impression(s) from Imaging Studies Obstetrics Ultrasound 03/14/23 11:33 IMPRESSION: Unremarkable intrauterine gestation. A right ovarian cyst. Electronically Signed: Boyd Buck MD at 14:17 EST , Pelvic ultrasound was obtained. There is a intrauterine gestation measuring 15 weeks and 5 days. heart rate was 158. There is a right ovarian cyst. There is no other abnormality noted. This was interpreted by the radiologist and was also independently reviewed by myself. Treatment and Re-Evaluation Narrative: Chart was reviewed and patient's blood type is O+. Patient is feeling better on reevaluation. Patient was advised of her findings. Patient was instructed on complete vaginal rest. Patient was instructed to follow-up with her PAID SEARCH MARKETING ANALYST next week as scheduled. Patient was instructed return if worse in any way. Patient understood and was agreeable with the plan. All questions were answered. Discharge Plan Triage Chief Complaint: Vag Bld, Preg ED Provider: Dwight Farrell Dx/Rx/DC Orders Clinical Impression: Threatened miscarriage, Cyst of right ovary Instructions: ED Possible Miscarriage ..., ED Ovarian Cyst Prescriptions: No Action sertraline [Zoloft] 50 mg tablet 50 mg PO DAILY Qty: 30 1RF promethazine 12.5 mg tablet 12.5 mg PO Q6H PRN (Reason: nausea and vomiting) Qty: 60 3RF Rx Instructions: 3 doses during day; last dose no later than 4 hr before bedtime valacyclovir 500 mg tablet 500 mg PO BID 5 Days Qty: 10 4RF Primary Care Provider: Juancho Caldwell Referrals: Juancho Caldwell MD [Primary Care Provider] - 5-7 Days Activity Restrictions/Additional Instructions: Follow-up with your PAID SEARCH MARKETING ANALYST next week as scheduled. Please use complete vaginal rest until you are rechecked by your PAID SEARCH MARKETING ANALYST. No intercourse, no tampons, and no douching. Disposition Disposition: Home, Self Care
--- NOTE | 2023-03-14 11:33 | US_ITS ---
STUDY: SECOND AND THIRD TRIMESTER OBSTETRICAL ULTRASOUND - LIMITED REASON FOR EXAM: Female, 22 years old Threatened miscarriage LMP: November 24, 2022. PRIOR ULTRASOUND: Comparison is made with prior study dated January 29, 2023 TECHNIQUE: Transabdominal TECHNICAL QUALITY: Adequate. FINDINGS: There is a single intrauterine fetus. The fetus is in a breech presentation. There is demonstrated cardiac activity with a heart rate of 158 bpm. There is a normal amniotic fluid volume. The largest amniotic fluid pocket measures 3.9 cm x 6 cm. The amniotic fluid index (FABRIZIO) is within normal limits. The placenta is posterior in location and is not low lying. There are Grade 0 placental changes. The cervix measures 3.4 cm in length. BIOMETRY: Age by LMP: 15 weeks, 5 days. MASON by LMP: August 31, 2023. Incidental note was made of a 2.4 cm x 2.6 cm x 2.3 cm right ovarian cyst. US/OB Limited (No Biometrics) IMPRESSION: Unremarkable intrauterine gestation. A right ovarian cyst. Electronically Signed: Boyd Buck MD at 14:17 EST ,
[2023-03-14 12:24] LABS: Absolute Lymphocyte Count 2.28 X10^3/uL (0.83-4.51); Absolute Neutrophil Count 5.5 X10^3/uL (2.0-7.7); Basophil# 0.06 X10^3/uL; Basophil% 0.7 % (0-1); Eosinophils% 4.5 % (0-5); Hematocrit 37.5 % (37-47); Hemoglobin 12.6 g/dL (12.0-15.0); Lymphocyte # 2.28 X10^3/ul (0.83-4.51); Lymphocyte % 25.6 % (19-41); Mean Corp Hgb Conc 33.6 g/dL (32-36); Mean Corpuscular Hgb 31.4 pg (27.0-32.0); Mean Corpuscular Volume 93.5 fL (81-99); Mean Platelet Vol. 10.8 fl (6.2-12.0); Monocyte# 0.66 X10^3/uL; Monocyte% 7.4 % (0-10); NRBC Flagged by Analyzer 0 % (0-5); Neutrophil # 5.47 X10^3/uL (2.7-7.7); Neutrophil % 61.4 % (47-70); Platelet Count 250 K/mm3 (150-450); RBC Distribution Width CV 12.8 % (11.6-14.6); RBC Distribution Width SD 43.8 fl (35.1-43.9); Red Blood Count 4.01 M/mm3 (4.2-5.4); White Blood Count 8.9 K/mm3 (4.4-11.0)
[2023-03-14] MEDS: 0.9% Normal Saline (1000mL) 1,000 ML 1000 ML IV (12:26)
[2023-03-14 12:36] LABS: Mucous, Urine 0 SEEN /hpf (<or=2+); Red Blood Cells-Urine 0 SEEN /hpf (0-5); White Blood Cells 0 SEEN /hpf (0-5)
[2023-03-14 12:42] LABS: Color, Urine Yellow (Yellow); Glucose, Dipstick Normal (Normal); Ketone-Dipstick Negative (Negative); Leukocyte Esterase-Dipstick Negative /ul (Negative); Nitrite-Dipstick Negative (Negative); Occult Blood-Urine Negative /ul (Negative); Protein-Dipstick Negative (Negative); Urine Bilirubin Dipstick Negative (Negative); Urine Clarity Sl. Cloudy (Clear); Urine Urobilinogen Normal (Normal)
[2023-03-14 12:58] LABS: Bacteria 1+ /hpf (None Seen); Squamous Epithelial Cells - UA 0-5 SEEN /hpf (5-10)
[2023-03-14 13:25] LABS: hCG Titer Quant., Serum 11066 mIU/mL (1-3)
== END 2023-03-14 15:16 | disposition home or self-care (01) ==
PROVIDERS: Emergency Provider Emergency Medicine; PCP Internal Medicine; Visit Provider Emergency Medicine
DX: O20.0 Threatened abortion (principal); O34.82 Maternal care for other abnormalities of pelvic organs, second trimester; Z3A.15 15 weeks gestation of pregnancy; N83.201 Unspecified ovarian cyst, right side; O98.32 Other infections with a predominantly sexual mode of transmission complicating childbirth; A60.00 Herpesviral infection of urogenital system, unspecified; O99.332 Smoking (tobacco) complicating pregnancy, second trimester; F17.290 Nicotine dependence, other tobacco product, uncomplicated; Z79.899 Other long term (current) drug therapy
CPT/HCPCS: 76815; 81001; 84702; 85025; 96360; 96361; 99282; J7030; A4216

== ENCOUNTER 2023-04-15 10:57 | Emergency (ER) | payer MEDICAID, SELFPAY ==
[2023-04-15 10:58] VITALS: BP 117/78; PULSE 112; RESP 15; TEMP 36.8; O2SAT 99; BMI 23.8
--- NOTE | 2023-04-15 11:19 | EDS_ITS ---
HPI <SARA Rico - Last Filed: 04/15/23 12:51> History of Present Illness Chief Complaint: Nausea/Vomiting/Diarrhea Narrative Narrative: Patient presenting today due to to nausea, vomiting, and diarrhea that started at 2 AM today. She denies having abdominal pain. She reports that she is 20 weeks and is G3, P1. She has care and follows with Dr. Garvin. She denies any fever, chills, hematemesis, melena/hematochezia, urinary symptoms, and vaginal bleeding. PFSH <SARA Rico - Last Filed: 04/15/23 12:51> [facility] Medical History Anxiety Back pain Chest pain Depression Genital herpes affecting Lab test negative for COVID-19 virus Pelvic pain Scoliosis Smoker Wears glasses Home Medications valacyclovir 500 mg tablet 500 mg PO BID 5 days #10 tabs 02/05/23 [Rx Last Taken Unknown] promethazine 12.5 mg tablet 12.5 mg PO Q6H PRN nausea and vomiting #60 tabs 02/19/23 [Rx Last Taken Unknown] sertraline 50 mg tablet (Zoloft) 50 mg PO DAILY #30 tabs 02/19/23 [Rx Last Taken Unknown] metoclopramide HCl 10 mg tablet (Reglan) 10 mg PO Q6H PRN nausea and vomiting 2 days #8 tabs 04/15/23 [Rx Last Taken Unknown] Allergy/AdvReac Type Severity Reaction Status Date / Time No Known Allergies Allergy Verified 03/19/23 15:38 Family History Aunt Breast cancer Surgical History History of dilatation and curettage No significant past surgical history Social History adopted: No household members: spouse, children and other details: FOB mother housing: house number of children: 1 current occupational status: unemployed pets and animals: Yes pets and animals: dog(s) history of recent travel: No sexually active: Yes Smoking Status: Current some day smoker tobacco type: e-cigarettes second hand exposure: Yes alcohol intake: never substance use type: does not use well-balanced diet: about half the time caffeine: Yes eating out: 1-3 times/week what type of physical activity do you participate in: none seatbelt use: always do you feel safe at home: Yes additional social history: Spouse- Da CEJA <SARA Rico - Last Filed: 04/15/23 12:51> ROS ED Constitutional Constitutional ED: Denies chills or fever(s) Cardiovascular Cardiovascular: Denies chest pain Respiratory/Chest Respiratory/Chest: Denies cough or dyspnea Gastrointestinal Gastrointestinal: Reports diarrhea, nausea and vomiting; Denies abdominal pain or melena Genitourinary Genitourinary ED: Denies dysuria, hematuria or urinary urgency Musculoskeletal Musculoskeletal: Denies arthralgias or myalgias Integumentary Denies rash Neurologic Neurologic: Denies weakness EXAM <SARA Rico - Last Filed: 04/15/23 12:51> Physical Exam Const Vital Signs: 04/15/23 10:58 04/15/23 12:42 Temperature 98.2 F Temperature Source Temporal Pulse Rate 112 H 62 Respiratory Rate 15 15 Blood Pressure 117/78 108/76 Blood Pressure Mean 91 86 Pulse Ox 99 99 Oxygen Delivery Method Room Air Room Air Positive well nourished, well developed and no apparent distress General Appearance ED: well developed HEENT Reports normocephalic and head/scalp atraumatic Mouth ED: Yes moist mucous membranes normal Eyes PERRL and EOMs intact bilaterally Neck full ROM and supple Chest Wall inspection of chest normal Resp normal respiratory effort and clear to auscultation bilaterally Cardio regular rate and regular rhythm GI soft to palpation, non-tender, non-distended and no masses Back/Spine normal ROM and normal to inspection Extremity normal to inspection and full ROM Neuro oriented x3, CN's II-XII intact bilaterally, moves all extremities, no focal motor deficits and no sensory deficits noted Sensorium / Orientation: awake and alert Psych mental status grossly normal and thought process normal Skin no rashes or lesions noted and no wounds <Dr. Ghanshyam Major MD - Last Filed: 04/15/23 11:32> Physical Exam Const Vital Signs: 04/15/23 10:58 04/15/23 12:42 Temperature 98.2 F Temperature Source Temporal Pulse Rate 112 H 62 Respiratory Rate 15 15 Blood Pressure 117/78 108/76 Blood Pressure Mean 91 86 Pulse Ox 99 99 Oxygen Delivery Method Room Air Room Air [facility] <SARA Rico - Last Filed: 04/15/23 12:51> [facility] Narrative Medical decision making narrative: Patient presenting due to N/V/D that started at 2 AM. She is nontoxic-appearing and in no acute distress. She does not have any abdominal pain, her abdomen is soft and nontender. She will be given IV fluids and Zofran. Basic labs will be obtained. On reexamination she reports that she is still feeling nauseous and t hat Zofran never really works for her. She was given Reglan and was then able to tolerate p.o. fluids and reports feeling much better. This is likely a gastroenteritis. WBCs 14.6, likely elevated given she is . I have encouraged her to stay well-hydrated. She does have an upcoming appointment with her OB on . She has been given return instructions. She will be discharged home with a prescription for Reglan. She is comfortable with plan. Lab Data Attestation: I reviewed the patient's lab results. Lab results narrative: WBC 14.6 Labs: Laboratory Results - last 24 hr 04/15/23 11:20 WBC 14.6 H RBC 4.69 Hgb 14.7 Hct 43.3 MCV 92.3 MCH 31.3 MCHC 33.9 RDW Std Deviation 42.0 RDW Coeff of Nidia 12.4 Plt Count 278 MPV 10.6 Immature Gran % (Auto) 0.400 Neut % (Auto) 92.1 H Lymph % (Auto) 4.4 L [place] % (Auto) 2.8 Eos % (Auto) 0.1 Baso % (Auto) 0.2 Absolute Neuts (auto) 13.4 H Absolute Lymphs (auto) 0.64 L Nucleated RBC % 0 Sodium 137 Potassium 4.1 Chloride 108 H Carbon Dioxide 25.0 Anion Gap 4 L BUN 9 Creatinine 0.63 Estim Creat Clear Calc 131.12 Est GFR (MDRD) Af Amer 152 Est GFR (MDRD) Non-Af 125 BUN/Creatinine Ratio 14.4 Glucose 108 H Calcium 9.2 <Dr. Ghanshyam Major MD - Last Filed: 04/15/23 11:32> [facility] Lab Data Labs: Laboratory Results - last 24 hr 04/15/23 11:20 WBC 14.6 H RBC 4.69 Hgb 14.7 Hct 43.3 MCV 92.3 MCH 31.3 MCHC 33.9 RDW Std Deviation 42.0 RDW Coeff of Nidia 12.4 Plt Count 278 MPV 10.6 Immature Gran % (Auto) 0.400 Neut % (Auto) 92.1 H Lymph % (Auto) 4.4 L [place] % (Auto) 2.8 Eos % (Auto) 0.1 Baso % (Auto) 0.2 Absolute Neuts (auto) 13.4 H Absolute Lymphs (auto) 0.64 L Nucleated RBC % 0 Sodium 137 Potassium 4.1 Chloride 108 H Carbon Dioxide 25.0 Anion Gap 4 L BUN 9 Creatinine 0.63 Estim Creat Clear Calc 131.12 Est GFR (MDRD) Af Amer 152 Est GFR (MDRD) Non-Af 125 BUN/Creatinine Ratio 14.4 Glucose 108 H Calcium 9.2 Treatment and Re-Evaluation Comments:: I have personally performed a face to face assessment of the patient and have reviewed the LAWANDA Note. I performed a substantive portion of the visit including all aspects of the following. My you findings include: History is less than 12 hours of nausea, vomiting, diarrhea. She is 20 weeks . She denies any abdominal pain or known fever/chills. No travel out of the area or suspicious food intake. She was concerned about getting dehydrated because she is . Exam is well-appearing, mild tachycardia, benign abdomen no distention. Medical Decison Making basic labs, IV fluids, Zofran, oral fluid challenge and prescription for Zofran to use as needed for what is likely viral illness and supportive care is indicated. Other additions or changes: [None] Discharge Plan Triage Chief Complaint: Nausea/Vomiting/Diarrhea ED Midlevel Provider: Azra Rios ED Provider: Ghanshyam Major Dx/Rx/DC Orders Clinical Impression: Gastroenteritis, Instructions: ED Gastroenteritis, Noninfectious Prescriptions: New metoclopramide HCl [Reglan] 10 mg tablet 10 mg PO Q6H PRN (Reason: nausea and vomiting) 2 Days Qty: 8 0RF No Action sertraline [Zoloft] 50 mg tablet 50 mg PO DAILY Qty: 30 1RF promethazine 12.5 mg tablet 12.5 mg PO Q6H PRN (Reason: nausea and vomiting) Qty: 60 3RF Rx Instructions: 3 doses during day; last dose no later than 4 hr before bedtime valacyclovir 500 mg tablet 500 mg PO BID 5 Days Qty: 10 4RF Primary Care Provider: Juancho Caldwell Referrals: Juancho Caldwell MD [Primary Care Provider] - 3-5 Days Activity Restrictions/Additional Instructions: Return for any worsening of your symptoms. Stay well-hydrated. Disposition Disposition: Home, Self Care
[2023-04-15 11:30] LABS: Absolute Lymphocyte Count 0.64 X10^3/uL (0.83-4.51); Absolute Neutrophil Count 13.4 X10^3/uL (2.0-7.7); Basophil# 0.03 X10^3/uL; Basophil% 0.2 % (0-1); Eosinophil# 0.02 X10^3/uL; Eosinophils% 0.1 % (0-5); Hematocrit 43.3 % (37-47); Hemoglobin 14.7 g/dL (12.0-15.0); Lymphocyte # 0.64 X10^3/ul (0.83-4.51); Lymphocyte % 4.4 % (19-41); Mean Corp Hgb Conc 33.9 g/dL (32-36); Mean Corpuscular Hgb 31.3 pg (27.0-32.0); Mean Corpuscular Volume 92.3 fL (81-99); Mean Platelet Vol. 10.6 fl (6.2-12.0); Monocyte# 0.41 X10^3/uL; Monocyte% 2.8 % (0-10); NRBC Flagged by Analyzer 0 % (0-5); Neutrophil # 13.39 X10^3/uL (2.7-7.7); Neutrophil % 92.1 % (47-70); Platelet Count 278 K/mm3 (150-450); RBC Distribution Width CV 12.4 % (11.6-14.6); Red Blood Count 4.69 M/mm3 (4.2-5.4); White Blood Count 14.6 K/mm3 (4.4-11.0)
[2023-04-15] MEDS: Ondansetron 4 MG/2 ML Vial IV (11:30)
[2023-04-15] MEDS: 0.9% Normal Saline (1000mL) 1,000 ML 999 ML IV (11:30)
[2023-04-15 11:42] LABS: Anion Gap 4 (5-15); BUN 9 mg/dL (7-18); BUN/Creat Ratio 14.4 RATIO (10-20); Calcium,Total 9.2 mg/dL (8.5-10.1); Chloride 108 mmol/L (98-107); Creatinine, Serum 0.63 mg/dL (0.55-1.02); EST Glomerular Filtration Rate 125 mL/min (>60); Est Glom Filt Rate - Afr Amer 152 mL/min (>60); Estimated Creatinine Clearance 131.12 ml/min; Glucose 108 mg/dL (74-106); Potassium 4.1 mmol/L (3.5-5.1); Sodium Level 137 mmol/L (136-145)
[2023-04-15] MEDS: Metoclopramide 10 MG/2 ML Vial 5 MG IV (12:22)
[2023-04-15 12:42] VITALS: BP 108/76; PULSE 62; RESP 15; O2SAT 99
== END 2023-04-15 12:54 | disposition home or self-care (01) ==
PROVIDERS: Physician Assistant; Emergency Provider Emergency Medicine; PCP Internal Medicine; Visit Provider Emergency Medicine
DX: O99.612 Diseases of the digestive system complicating pregnancy, second trimester (principal); K52.9 Noninfective gastroenteritis and colitis, unspecified; O99.332 Smoking (tobacco) complicating pregnancy, second trimester; F17.290 Nicotine dependence, other tobacco product, uncomplicated; Z3A.20 20 weeks gestation of pregnancy
CPT/HCPCS: 80048; 85025; 96361; 96374; 96375; 99283; J7030; A4216; J2405

== ENCOUNTER → 2023-06-05 | Outpatient (CLI) | payer MEDICAID, SELFPAY ==
[2023-06-05 15:24] LABS: Absolute Lymphocyte Count 2.19 X10^3/uL (0.83-4.51); Absolute Neutrophil Count 7.5 X10^3/uL (2.0-7.7); Basophil# 0.03 X10^3/uL; Basophil% 0.3 % (0-1); Eosinophil# 0.18 X10^3/uL; Eosinophils% 1.7 % (0-5); Hematocrit 35.4 % (37-47); Lymphocyte # 2.19 X10^3/ul (0.83-4.51); Lymphocyte % 20.3 % (19-41); Mean Corp Hgb Conc 33.9 g/dL (32-36); Mean Corpuscular Hgb 31.2 pg (27.0-32.0); Mean Corpuscular Volume 91.9 fL (81-99); Mean Platelet Vol. 10.7 fl (6.2-12.0); Monocyte# 0.78 X10^3/uL; Monocyte% 7.2 % (0-10); NRBC Flagged by Analyzer 0 % (0-5); Neutrophil # 7.52 X10^3/uL (2.7-7.7); Neutrophil % 69.7 % (47-70); Platelet Count 382 K/mm3 (150-450); RBC Distribution Width SD 40.4 fl (35.1-43.9); Red Blood Count 3.85 M/mm3 (4.2-5.4); White Blood Count 10.8 K/mm3 (4.4-11.0)
[2023-06-05 15:52] LABS: Glucose Challenge Gest 1H 50g 84 mg/dL (70-140)
[2023-06-05 16:30] LABS: HIV - WCH Non-Reactive (Nonreactive); Syphilis Antibodies Non-reactive
--- OUTSIDE RECORDS SUMMARY | 2023-06-05 17:03 | XMS RPT_ITS | CCD ---
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 15-19 Moderately severe depression RENETTA-7 ANXIETY SCALE 01/22/2022 FEELING NERVOUS,ANXIOUS,OR ON EDGE 3 Nearly every day NOT BEING ABLE TO STOP OR CONTROL WORRYING 2 Over half the days WORRYING TOO MUCH ABOUT DIFFERENT THINGS 3 Nearly every day TROUBLE RELAXING 2 Over half the days BEING SO RESTLESS THAT IT'S HARD TO SIT STILL 2 Over half the days BEING EASILY ANNOYED OR IRRITABLE 3 Nearly every day FEELING AFRAID IF SOMETHING AWFUL MIGHT HAPPEN 2 Over half the days GAD7 SCORE 17 IF YOU CHECKED OFF ANY PROBLEMS Extremely difficult REVIEW OF SYSTEMS See HPI PAST MEDICAL HISTORY Diagnosis Date Anxiety 2011 Dyslexia Genital herpes Hypoglycemia depression 12/2020 Scoliosis Tendonitis left knee PAST SURGICAL HISTORY Procedure Laterality Date NONE ALLERGIES Patient has no known allergies. MEDICATIONS cetirizine (ZYRTEC) 10 mg tablet Take 1 tablet by mouth once daily as needed (for itching, sneezing or runny nose). hydrOXYzine pamoate (VISTARIL) 25 mg capsule Take by mouth as needed. sertraline (ZOLOFT) 50 mg tablet Take by mouth. etonogestrel (NEXPLANON) subdermal implant 68 mg by SUBDERMAL route. FAMILY HISTORY Problem Relation Age of Onset Hypoglycemia Mother No Known Problems Father No Known Problems Sister No Known Problems Sister No Known Problems Brother Psychiatry Brother Bipolar Psychiatry Maternal Grandmother Social History Tobacco Use Smoking status: Every Day Types: Cigarettes Smokeless tobacco: Never Tobacco comments: 2-3 cigs per day x 4 years Substance Use Topics Alcohol use: Yes Comment: 1 drink per month or less. Drug use: Not Currently PHYSICAL EXAM BP 138/84 Pulse 84 Resp 18 Wt 69.9 kg (154 lb) LMP (LMP Unknown) BMI 24.86 kg/m Appearance: well dressed well groomed, cooperative, and pleasant Behavior: poor eye contact and tense Speech: fluent and coherent Mood: modulated Affect: constricted ASSESSMENT/PLAN: 1. Mixed anxiety and depressive disorder - ICD9: 300.4, ICD10: F41.8 Patient was doing well on Wellbutrin and Zoloft until recently. Recommend staying on both and increasing the dose of Zoloft to 150 mg daily, patient is agreeable - Reviewed concept of neurochemical imbalance wth depression/anxiety, treatment options and benefits of counseling in combination with medication. Also reviewed benefits of sleep hygeine, diet and exercise - encouraged patient to schedule appointment with counselor, given list of local counselors - Follow-up in 3 weeks or sooner as needed - Instructed patient to contact office or [id number] after-hours promptly should condition worsen or any new symptoms appear. - [facility] and after hours crisis line Prescription instructions reviewed with patient as applicable. Potential red flag symptoms discussed with the patient. Reviewed appropriate action plan to take if red flag symptoms occur. Patient agreeable to treatment plan During this patient visit I have spent approximately 20 minutes in counseling regarding treatment options, medications, and coordinating care. Zoila Mendez APRN.CNP documented in this encounter [facility] 12-20-2021 Note HNO ID: [id number] Author: Clemente Aquino APRN.CNP Service: ? Author Type: Nurse Practitioner Type: Progress Notes Filed: 12/20/2021 10:31 AM Note Text: Subjective HPI HPI Ina Blanco is a 21 year old female who presents today for CC of cough, sob, congestion. This started 2 weeks ago/getting worse. Has tried otc medication for relief. Symptoms are worsened by nothing. Risk factors vapes. Denies cp, n/v/d, ear pain. Denies possibility of being . .Patient presents with: Cough: Pt reported intermittent SOB, denied chest pain, x2 wks. PAST MEDICAL HISTORY Diagnosis Date Anxiety 2011 Dyslexia Genital herpes Hypoglycemia depression 12/2020 Scoliosis Tendonitis left knee PAST SURGICAL HISTORY Procedure Laterality Date NONE ALLERGIES Patient has no known allergies. MEDICATIONS cetirizine (ZYRTEC) 10 mg tablet Take 1 tablet by mouth once daily as needed (for itching, sneezing or runny nose). hydrOXYzine pamoate (VISTARIL) 25 mg capsule Take by mouth as needed. etonogestrel (NEXPLANON) subdermal implant 68 mg by SUBDERMAL route. mometasone (ELOCON) 0.1 % cream Apply to affected area once daily. (Patient not taking: Reported on 09/26/2021 ) sertraline (ZOLOFT) 50 mg tablet Take by mouth. (Patient not taking: Reported on 09/26/2021 ) valacyclovir HCl (VALTREX ORAL) Take by mouth. (Patient not taking: Reported on 09/26/2021 ) FAMILY HISTORY Problem Relation Age of Onset Hypoglycemia Mother No Known Problems Father No Known Problems Sister No Known Problems Sister No Known Problems Brother Psychiatry Brother Bipolar Psychiatry Maternal Grandmother Social History Tobacco Use Smoking status: Every Day Types: Cigarettes Smokeless tobacco: Never Tobacco comments: 2-3 cigs per day x 4 years Substance Use Topics Alcohol use: Yes Comment: 1 drink per month or less. Drug use: Not Currently ROS Objective Blood pressure 108/60, pulse 97, temperature 37 ?C (98.6 ?F), resp. rate 16, weight 71.4 kg (157 lb 6.4 oz), SpO2 98 %. Physical Exam Constitutional: General: She is not in acute distress. Appearance: She is not toxic-appearing or diaphoretic. HENT: Head: Normocephalic and atraumatic. Cardiovascular: Rate and Rhythm: Normal rate and regular rhythm. Heart sounds: Normal heart sounds, S1 normal and S2 normal. Pulmonary: Effort: Pulmonary effort is normal. Breath sounds: Normal breath sounds. Lymphadenopathy: Cervical: No cervical adenopathy. Right cervical: No superficial cervical adenopathy. Left cervical: No superficial cervical adenopathy. Neurological: Mental Status: She is alert and oriented to person, place, and time. Gait: Gait is intact. ASSESSMENT/PLAN: 1. Sinobronchitis - ICD9: 473.9, 490, ICD10: J32.9, J40 - Will begin treatment with as per antibiotic as written, see orders - Supportive care with plenty of fluids, rest, and analgesia prn. - Follow up in 3-5 days if symptoms persist or worsen. -If you experience chest pain/shortness of breath go to ER - AMOXICILLIN 875 MG-POTASSIUM CLAVULANATE 125 MG TABLET Agrees to plan Declines avs Clemente Aquino APRN.[facility] 09-26-2021 Note HNO ID: [id number] Author: Carmen Ye MD Service: ? Author Type: Physician Type: Progress Notes Filed: 09/27/2021 8:38 AM Note Text: This is a consultation requested by Dr. Glass for an allergy and immunology evaluation. My final recommendations will be communicated back to the requesting healthcare provider(s) by way of shared medical record or via [place]. mail. Ina Blanco is a 21 year old female who presents with concerns about possible medication allergies. Patient's father has a history of severe allergic reactions to penicillin and erythromycin. The patient does not recall ever taking a penicillin or macrolide antibiotic, however, upon chart review, a 7-day course of Augmentin was prescribed by podiatry in 2016. Cephalexin and cefdinir have also been prescribed for the patient previously. She has never experienced an adverse reaction to an antibiotic. She notes rhinorrhea and scratchy throat occurring in the spring and early summer. She takes Benadryl as needed with relief. History of developing a pruritic skin rash on sun exposed areas in the spring and summer. Currently has a rash involving the left ventral forearm. She applies mometasone cream 0.1% as needed with relief. Rash typically resolves in 2 to 3 days. REVIEW OF SYSTEMS: SINUSITIS: The patient does not suffer from frequent sinopulmonary infections. ASTHMA: The patient has no history of asthma. ECZEMA: The patient has no history of eczema. URTICARIA:The patient does not have a history of urticaria and/or angioedema. GERD: The patient does not have a history of GERD. INSECT STING: The patient does not have a history of systemic reaction to insect sting. FOOD ALLERGY:The patient denies history of food allergy. LATEX: The patient does not have a history of adverse reaction to latex. All other review of systems negative except for those listed above. PAST MEDICAL HISTORY Diagnosis Date - Anxiety 2011 - Dyslexia - Genital herpes - Hypoglycemia - depression 12/2020 - Scoliosis MEDICATIONS: mometasone (ELOCON) 0.1 % cream Apply to affected area once daily. hydrOXYzine pamoate (VISTARIL) 25 mg capsule Take by mouth. sertraline (ZOLOFT) 50 mg tablet Take by mouth. valacyclovir HCl (VALTREX ORAL) Take by mouth. etonogestrel (NEXPLANON) subdermal implant 68 mg by SUBDERMAL route. ALLERGIES: Allergies As of Date: 09/26/2021 Allergen Noted Reaction ERYTHROMYCIN 01/30/2018 Anaphylaxis PENICILLIN 01/30/2018 Anaphylaxis SEASONAL ALLERGIES 05/06/2014 Rash Fully Assessed 08/25/2021 PAST SURGICAL HISTORY Procedure Laterality Date - NONE FAMILY HISTORY: Allergic rhinitis:no. Asthma: no. Eczema: no. Cystic fibrosis: no. Immunodeficiency: no. SOCIAL HISTORY: Employer And Job Title: No employer specified (Student) Years Of Education Completed: Not specified Marital Status: with no children Social History Tobacco Use Smoking status: Current Every Day Smoker Types: Cigarettes Smokeless tobacco: Never Used Tobacco comment: 2-3 cigs per day x 4 years 4-5 cigarettes per day. ENVIRONMENTAL HISTORY: Lives in a apartment Age of home: unknown years Heating: electric Woodburning fireplace in the home: no Air conditioning: Window air conditioning Basement: No basement Spencer: [id number] carpeting Dust mite controls: Dust mite controls are not in place. Pets in the home: 1 dogs Outdoor animals: There are no outdoor animals Tobacco smoke: No exposure in the home. Physical Exam: GENERAL APPEARANCE:Well appearing, alert, in no acute distress, well-hydrated, well nourished. HEENT: NCAT. EYES: conjunctiva and sclera normal. EARS: External ears normal. Canals clear. TM's normal. NOSE/SINUS: Nares normal. Septum midline. Mucosa normal. No drainage or sinus tenderness. THROAT: no erythema NECK:neck supple, no adenopathy HEART:RRR with normal S1 and S2 ,no murmurs, no gallops, no rubs LUNGS: clear to auscultation bilaterally, no wheezes, rales or rhonchi ABDOMEN:soft, nontender, nondistended, without organomegaly or palpable masses EXTREMITIES:Extremities normal, No deformities, No skin discoloration and No edema SKIN: Erythematous rash on the ventral left forearm. Lesions are slightly raised. ALLERGY SKIN TESTS: Negative to inhalant allergens on prick testing. ASSESSMENT/PLAN: 1.) Family history of medication allergies: Reassured patient that allergy skin testing and/or medication challenges are not indicated for a family history of medication allergies alone. She may take penicillin, erythromycin, other penicillin type antibiotics and other macrolide antibiotics as tolerated. 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 Continue mometasone cream 0.1% apply twice a day as needed to affected areas. Start cetirizine/Zyrtec 10 mg once a day as needed for itching. 3.) Nonallergic rhinitis: (more content not included)... [facility] 09-26-2021 Instructions Carmen Ye MD - 09/26/2021 2:03 PM EDT You may take penicillin, erythromycin and other related antibiotics without special precautions. Allergy skin tests to inhalant allergens were negative You may take cetirizine/zyrtec 10 mg once a day as needed for itching, sneezing or runny nose documented in this encounter [facility] 09-26-2021 Nurse Note Patient here for penicillin and erythromycin allergy-father has severe allergies to both and patient has not had either. Gets hives during Spring/Summer-uses Benadryl and mometasone cream as needed. Cream helps. C/o runny nose, scratchy throat Spring/Summer-takes benadryl prn which helps. Denies antihistamine use in past 5 days. documented in this encounter [facility] 09-26-2021 History of Presen t illness Narrative This is a consultation requested by Dr. Glass for an allergy and immunology evaluation. My final recommendations will be communicated back to the requesting healthcare provider(s) by way of shared medical record or via U.S. mail. Ina Blanco is a 21 year old female who presents with concerns about possible medication allergies. Patient's father has a history of severe allergic reactions to penicillin and erythromycin. The patient does not recall ever taking a penicillin or macrolide antibiotic, however, upon chart review, a 7-day course of Augmentin was prescribed by podiatry in 2016. Cephalexin and cefdinir have also been prescribed for the patient previously. She has never experienced an adverse reaction to an antibiotic. She notes rhinorrhea and scratchy throat occurring in the spring and early summer. She takes Benadryl as needed with relief. History of developing a pruritic skin rash on sun exposed areas in the spring and summer. Currently has a rash involving the left ventral forearm. She applies mometasone cream 0.1% as needed with relief. Rash typically resolves in 2 to 3 days. REVIEW OF SYSTEMS: SINUSITIS: The patient does not suffer from frequent sinopulmonary infections. ASTHMA: The patient has no history of asthma. ECZEMA: The patient has no history of eczema. URTICARIA:The patient does not have a history of urticaria and/or angioedema. GERD: The patient does not have a history of GERD. INSECT STING: The patient does not have a history of systemic reaction to insect sting. FOOD ALLERGY:The patient denies history of food allergy. LATEX: The patient does not have a history of adverse reaction to latex. All other review of systems negative except for those listed above. PAST MEDICAL HISTORY Diagnosis Date Anxiety 2011 Dyslexia Genital herpes Hypoglycemia depression 12/2020 Scoliosis MEDICATIONS: mometasone (ELOCON) 0.1 % cream Apply to affected area once daily. hydrOXYzine pamoate (VISTARIL) 25 mg capsule Take by mouth. sertraline (ZOLOFT) 50 mg tablet Take by mouth. valacyclovir HCl (VALTREX ORAL) Take by mouth. etonogestrel (NEXPLANON) subdermal implant 68 mg by SUBDERMAL route. ALLERGIES: Allergies As of Date: 09/26/2021 Allergen Noted Reaction ERYTHROMYCIN 01/30/2018 Anaphylaxis PENICILLIN 01/30/2018 Anaphylaxis SEASONAL ALLERGIES 05/06/2014 Rash Fully Assessed 08/25/2021 PAST SURGICAL HISTORY Procedure Laterality Date NONE FAMILY HISTORY: Allergic rhinitis:no. Asthma: no. Eczema: no. Cystic fibrosis: no. Immunodeficiency: no. SOCIAL HISTORY: Employer And Job Title: No employer specified (Student) Years Of Education Completed: Not specified Marital Status: with no children Social History Tobacco Use Smoking status: Current Every Day Smoker Types: Cigarettes Smokeless tobacco: Never Used Tobacco comment: 2-3 cigs per day x 4 years 4-5 cigarettes per day. ENVIRONMENTAL HISTORY: Lives in a apartment Age of home: unknown years Heating: electric Woodburning fireplace in the home: no Air conditioning: Window air conditioning Basement: No basement Spencer: [id number] carpeting Dust mite controls: Dust mite controls are not in place. Pets in the home: 1 dogs Outdoor animals: There are no outdoor animals Tobacco smoke: No exposure in the home. Physical Exam: GENERAL APPEARANCE:Well appearing, alert, in no acute distress, well-hydrated, well nourished. HEENT: NCAT. EYES: conjunctiva and sclera normal. EARS: External ears normal. Canals clear. TM's normal. NOSE/SINUS: Nares normal. Septum midline. Mucosa normal. No drainage or sinus tenderness. THROAT: no erythema NECK:neck supple, no adenopathy HEART:RRR with normal S1 and S2 ,no murmurs, no gallops, no rubs LUNGS: clear to auscultation bilaterally, no wheezes, rales or rhonchi ABDOMEN:soft, nontender, nondistended, without organomegaly or palpable masses EXTREMITIES:Extremities normal, No deformities, No skin discoloration and No edema SKIN: Erythematous rash on the ventral left forearm. Lesions are slightly raised. ALLERGY SKIN TESTS: Negative to inhalant allergens on prick testing. ASSESSMENT/PLAN: 1.) Family history of medication allergies: Reassured patient that allergy skin testing and/or medication challenges are not indicated for a family history of medication allergies alone. She may take penicillin, erythromycin, other penicillin type antibiotics and other macrolide antibiotics as tolerated. 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 Continue mometasone cream 0.1% apply twice a day as needed to affected areas. Start cetirizine/Zyrtec 10 mg once a day as needed for itching. 3.) Nonallergic rhinitis: Start cetirizine 10 mg once daily as needed. Depending on clinical course, may consider starting fluticasone nasal spray 1 to 2 sprays to each nostril once daily. 3.) Discussed medication dosage, usage, side effects, and goals of treatment in detail. 4.) Follow-up in PRN - patient will return sooner should new symptoms or problems arise. Carmen Ye MD documented in this encounter [facility] 08-25-2021 Note HNO ID: [id number] Author: Juancho Glass MD Service: ? Author Type: Physician Type: Progress Notes Filed: 08/25/2021 11:06 AM Note Text: This note was created using NoteWriter. Subjective Patient presents with: Establish Care: [facility] K[facility] Pain: left x 2 months Ina Blanco was here for above. She started having persistent pain with some swelling above the left knee cap 2 months ago, with no injury or change in activity. Pain was worse when straightening knee from flexion. Ibuprofen 400-600 mg did not help. She had controlled chronic anxiety, but also developed depression. Her sertraline was prescribed by her steel crane operator, Dr. Garvin. She will transfer refills to me. She was actively looking for a counselor. Her 2 year old dog helped her mood and stress and she needed a letter for this mica inspector dog. The history is provided by the patient. Review of Systems Constitutional: Negative for appetite change, chills, fever and unexpected weight change. HENT: Negative. Respiratory: Negative for shortness of breath. Cardiovascular: Negative for chest pain and palpitations. Gastrointestinal: Negative. Genitourinary: Negative. Musculoskeletal: Negative for back pain and gait problem. See HPI. Skin: Positive for rash. Recurrent itchy rash in wrist areas during spring and summer. Neurological: Negative for dizziness and headaches. Psychiatric/Behavioral: Positive for dysphoric mood. Negative for self-injury and sleep disturbance. The patient is nervous/anxious. PAST MEDICAL HISTORY Diagnosis Date - Anxiety 2011 - Dyslexia - Genital herpes - Hypoglycemia - depression 12/2020 - Scoliosis PAST SURGICAL HISTORY Procedure Laterality Date - NONE FAMILY HISTORY Problem Relation Age of Onset - Hypoglycemia Mother - No Known Problems Father - No Known Problems Sister - No Known Problems Sister - No Known Problems Brother - Psychiatry Brother Bipolar - Psychiatry Maternal Grandmother Social History Tobacco Use - Smoking status: Current Every Day Smoker Types: Cigarettes - Smokeless tobacco: Never Used - Tobacco comment: 2-3 cigs per day x 4 years Substance Use Topics - Alcohol use: Yes Comment: 1 drink per month or less. - Drug use: Not Currently Immunization History Administered Date(s) Administered DTaP, unspecified formulation 2000 2000 02/25/2001 01/04/2002 06/20/2004 11/15/2020 HIB PRP-T Conjugated -4 Dose Series 2000 2000 06/01/2001 01/04/2002 HUMAN PAPILLOMAVIRUS QUADRIVALENT - Male and Females 11/12/2013 Hepatitis A Peds/Adol 01/14/2014 07/18/2014 Hepatitis B Peds/Adol 2000 2000 06/01/2001 Human papillomavirus, unspecified formulation 01/14/2014 07/18/2014 IPV 2000 2000 01/04/2002 06/20/2004 Influenza Vaccine NASAL Tri (reflects Quad for 2012-) 02/20/2009 MMR 06/01/2001 06/20/2004 Meningococcal Conjugate MCV4P Vaccine, IM 11/10/2012 08/13/2017 Meningococcal Group B Vaccine 2 Dose 08/21/2018 Tdap (Age 7+) 11/10/2012 11/15/2020 Varicella Vaccine 01/04/2002 ALLERGIES Allergen Reactions - Erythromycin Anaphylaxis Father has severe allergy. Presumed allergy. - Penicillin Anaphylaxis Father has sever allergy. Presumed allergy. - Seasonal Allergies Rash Current Outpatient Medications Medication Sig - hydrOXYzine pamoate (VISTARIL) 25 mg capsule Take by mouth. - sertraline (ZOLOFT) 50 mg tablet Take by mouth. - valacyclovir HCl (VALTREX ORAL) Take by mouth. - etonogestrel (NEXPLANON) subdermal implant 68 mg by SUBDERMAL route. - meloxicam (MOBIC) 15 mg tablet Take 1 tablet by mouth once daily. With food. - mometasone (ELOCON) 0.1 % cream Apply to affected area once daily. No current facility-administered medications for this visit. Objective BP 104/66 Pulse 85 Resp 12 Ht 167.6 cm (5' 6 ) Wt 68.5 kg (151 lb) LMP (LMP Unknown) SpO2 100% BMI 24.37 kg/m? Physical Exam Constitutional: Appearance: Normal appearance. HENT: Head: Normocephalic. Eyes: Extraocular Movements: Extraocular movements intact. Conjunctiva/sclera: Conjunctivae normal. Cardiovascular: Rate and Rhythm: Normal rate and regular rhythm. Heart sounds: No murmur heard. No gallop. Pulmonary: Effort: Pulmonary effort is normal. Abdominal: Palpations: Abdomen is soft. Tenderness: There is no abdominal tenderness. Musculoskeletal: Cervical back: Neck supple. Lumbar back: No deformity or tenderness. Right knee: Normal. Left knee: Swelling present. No crepitus. Normal range of motion. Tenderness present over the patellar tendon. No LCL laxity or MCL laxity.Normal meniscus and normal patellar mobility. Instability Tests: Anterior drawer test negative. Posterior drawer test negative. Right lower leg: No edema. Left lower leg: No edema. Lymphadenopathy: Cervical: No cervica (more content not included)... [facility] 08-25-2021 History of Presen t illness Narrative This note was created using NoteWriter. Subjective Patient presents with: Establish Care: [facility] Stern, [facility] Physical Knee Pain: left x 2 months Ina Blanco was here for above. She started having persistent pain with some swelling above the left knee cap 2 months ago, with no injury or change in activity. Pain was worse when straightening knee from flexion. Ibuprofen 400-600 mg did not help. She had controlled chronic anxiety, but also developed depression. Her sertraline was prescribed by her steel crane operator, Dr. Garvin. She will transfer refills to [place]. She was actively looking for a counselor. Her 2 year old dog helped her mood and stress and she needed a letter for this mica inspector dog. The history is provided by the patient. Review of Systems Constitutional: Negative for appetite change, chills, fever and unexpected weight change. HENT: Negative. Respiratory: Negative for shortness of breath. Cardiovascular: Negative for chest pain and palpitations. Gastrointestinal: Negative. Genitourinary: Negative. Musculoskeletal: Negative for back pain and gait problem. See HPI. Skin: Positive for rash. Recurrent itchy rash in wrist areas during spring and summer. Neurological: Negative for dizziness and headaches. Psychiatric/Behavioral: Positive for dysphoric mood. Negative for self-injury and sleep disturbance. The patient is nervous/anxious. PAST MEDICAL HISTORY Diagnosis Date Anxiety 2011 Dyslexia Genital herpes Hypoglycemia depression 12/2020 Scoliosis PAST SURGICAL HISTORY Procedure Laterality Date NONE FAMILY HISTORY Problem Relation Age of Onset Hypoglycemia Mother No Known Problems Father No Known Problems Sister No Known Problems Sister No Known Problems Brother Psychiatry Brother Bipolar Psychiatry Maternal Grandmother Social History Tobacco Use Smoking status: Current Every Day Smoker Types: Cigarettes Smokeless tobacco: Never Used Tobacco comment: 2-3 cigs per day x 4 years Substance Use Topics Alcohol use: Yes Comment: 1 drink per month or less. Drug use: Not Currently Immunization History Administered Date(s) Administered DTaP, unspecified formulation 2000 2000 02/25/2001 01/04/2002 06/20/2004 11/15/2020 HIB PRP-T Conjugated -4 Dose Series 2000 2000 06/01/2001 01/04/2002 HUMAN PAPILLOMAVIRUS QUADRIVALENT - Male and Females 11/12/2013 Hepatitis A Peds/Adol 01/14/2014 07/18/2014 Hepatitis B Peds/Adol 2000 2000 06/01/2001 Human papillomavirus, unspecified formulation 01/14/2014 07/18/2014 IPV 2000 2000 01/04/2002 06/20/2004 Influenza Vaccine NASAL Tri (reflects Quad for 2013-) 02/20/2009 MMR 06/01/2001 06/20/2004 Meningococcal Conjugate MCV4P Vaccine, IM 11/10/2012 08/13/2017 Meningococcal Group B Vaccine 2 Dose 08/21/2018 Tdap (Age 7+) 11/10/2012 11/15/2020 Varicella Vaccine 01/04/2002 ALLERGIES Allergen Reactions Erythromycin Anaphylaxis Father has severe allergy. Presumed allergy. Penicillin Anaphylaxis Father has sever allergy. Presumed allergy. Seasonal Allergies Rash Current Outpatient Medications Medication Sig hydrOXYzine pamoate (VISTARIL) 25 mg capsule Take by mouth. sertraline (ZOLOFT) 50 mg tablet Take by mouth. valacyclovir HCl (VALTREX ORAL) Take by mouth. etonogestrel (NEXPLANON) subdermal implant 68 mg by SUBDERMAL route. meloxicam (MOBIC) 15 mg tablet Take 1 tablet by mouth once daily. With food. mometasone (ELOCON) 0.1 % cream Apply to affected area once daily. No current facility-administered medications for this visit. Objective BP 104/66 Pulse 85 Resp 12 Ht 167.6 cm (5' 6 ) Wt 68.5 kg (151 lb) LMP (LMP Unknown) SpO2 100% BMI 24.37 kg/m Physical Exam Constitutional: Appearance: Normal appearance. HENT: Head: Normocephalic. Eyes: Extraocular Movements: Extraocular movements intact. Conjunctiva/sclera: Conjunctivae normal. Cardiovascular: Rate and Rhythm: Normal rate and regular rhythm. Heart sounds: No murmur heard. No gallop. Pulmonary: Effort: Pulmonary effort is normal. Abdominal: Palpations: Abdomen is soft. Tenderness: There is no abdominal tenderness. Musculoskeletal: Cervical back: Neck supple. Lumbar back: No deformity or tenderness. Right knee: Normal. Left knee: Swelling present. No crepitus. Normal range of motion. Tenderness present over the patellar tendon. No LCL laxity or MCL laxity.Normal meniscus and normal patellar mobility. Instability Tests: Anterior drawer test negative. Posterior drawer test negative. Right lower leg: No edema. Left lower leg: No edema. Lymphadenopathy: Cervical: No cervical adenopathy. Skin: Findings: Rash present. Comments: Erythematous eczema both flexural wrist, left worse than right. Neurological: Mental Status: She is alert. Psychiatric: Mood and Affect: Mood normal. Behavior: Behavior normal. Thought Content: Thought content normal. Assessment and Plan 1. Routine general medical examination at a health care facility - ICD9: V70.0, ICD10: Z00.00 (primary diagnosis) - Counseled on healthy diet and regular exercise - Smoking cessation encouraged; discussed risks to health and quitting strategies. Patient is preparing to quit - Depression screening tool completed and reviewed with patient. Based on score and interview, patient is already diagnosed. 2. Anxiety - ICD9: 300.00, ICD10: F41.9 Stable. 3. depression - ICD9: 648.44, 311, ICD10: F53.0 Controlled. 4. Patellar tendinitis of left knee - ICD9: 726.64, ICD10: M76.52 - Use knee support. Limit repetitious flexion extension. - MELOXICAM 15 MG TABLET Discussed medication dosage, usage, goals of therapy, and side effects. 5. Eczema, unspecified type - ICD9: 692.9, ICD10: L30.9 - discussed skin care of rash - follow up if symptoms persist or worsen. - MOMETASONE 0.1 % TOPICAL CREAM 6. Allergy history unknown - ICD9: V49.89, ICD10: Z78.9 Antibiotic allergies presumed. - CONSULT TO ALLERGY/IMMUNOLOGY Juancho Glass MD documented in this encounter [facility] 05-04-2021 Note HNO ID: [id number] Author: Meghan Elise OD Service: ? Author Type: PRODUCTION OPERATIONS ENGINEER Type: Progress Notes Filed: 05/04/2021 12:58 PM Note Text: 1. Headaches Good ocular health both eyes Recommended wearing glasses 2. Regular astigmatism of both eyes Finalized spec rx Follow-up yearly Meghan Elise OD May 04, 2021 12:57 PM [facility] Diagnosis Nonallergic rhinitis- Primary Chronic rhinitis Rash and nonspecific skin eruption Rash and other nonspecific skin eruption Family history of allergies Family history of allergic disorders documented in this encounter [facility] note* Diagnosis Mixed anxiety and depressive disorder- Primary Dysthymic disorder documented in this encounter [facility] note* Diagnosis Abnormal ultrasound Abnormal findings on screening [facility] Screening, , for malformation by ultrasound Encounter for routine screening for malformation using ultrasonics complicated by cardiovascular abnormality, single or unspecified fetus Abnormal ultrasound Abnormal findings on screening documented in this encounter [facility] Summary Purpose Family History No Family History Records FoundNo Family History Records FoundNo Family History Records FoundNo Family History Records FoundNo Family History Records Found Advance Directives No Advanced Directives Records FoundNo Advanced Directives Records FoundNo Advanced Directives Records FoundNo Advanced Directives Records FoundNo Advanced Directives Records Found Reason for Referral Specialty Diagnoses / Procedures Referred By Contac t Referred To Contact Allergy Diagnoses Allergy history unknown Procedures CONSULT TO ALLERGY/IMMUNOLOGY OFFICE/OUTPATIENT [facility] 60-74 MINUTES Juancho Glass MD [address] [place] [address] Referral ID Status Reason Start Date Expiration Date Visits Requested Visits Authorized [id number] Authorized PCP Requested Referral 08/25/2021 08/25/2022 1 1 Specialty Diagnoses / Procedures Referred By Contac t Referred To Contact Lab Diagnoses Screening, , for malformation by ultrasound complicated by cardiovascular abnormality, single or unspecified fetus Abnormal ultrasound Procedures Genetic Sendout: Control sample for JAG1 testing on amniotic fluid sample Loli Aquino PA-C [address] [facility] [address] [place] [address] Referral ID Status Reason Start Date Expiration Date Visits Re quested Visits Authorized [id number] Open 05/21/2023 05/20/2024 1 1 Additional Source Comments INFORMATION SOURCE (unrecogn ized section and content) DATE CREATED AUTHOR AUTHOR'S ORGANIZ ATION 11/20/2019 [facility] DATE CREATED AUTHOR AUTHOR'S ORGANIZ ATION 12/21/2021 [facility] DATE CREATED AUTHOR AUTHOR'S ORGANIZ ATION 04/26/2022 [facility] DATE CREATED AUTHOR AUTHOR'S GLENNY ATION 05/31/2023 [facility] Source Comments (unrecognize d section and content) In the event this informatio n is protected by the Federal Confidentiality of Alcohol and Drug Abuse Patient Records regulations: The Federal rules restrict any use of the information to criminally investigate or prosecute any alcohol or drug abuse patient.[facility] the event this information is protected by the Federal Confidentiality of Alcohol and Drug Abuse Patient Records regulations: The Federal rules restrict any use of the information to criminally investigate or prosecute any alcohol or drug abuse patient.[facility] the event this information is protected by the Federal Confidentiality of Alcohol and Drug Abuse Patient Records regulations: The Federal rules restrict any use of the information to criminally investigate or prosecute any alcohol or drug abuse patient.[facility] Reason for Visit (unrecogniz ed section and content) Reason Comments New Patient allergy consult Specialty Diagnoses / Procedures Referred By Celine t Referred To Contact Allergy Diagnoses Allergy history unknown Procedures CONSULT TO ALLERGY/IMMUNOLOGY OFFICE/OUTPATIENT NEW HIGH MDM 60-74 MINUTES Juancho Glass MD [address] [place] [address] Referral ID Status Reason Start Date Expiration Date V isits Requested Visits Authorized [id number] Closed PCP Requested Referral 08/25/2021 08/25/2022 1 1 Reason Comments Medication Follow-up Specialty Diagnoses / Procedures Referred By Contac t Referred To Contact Lab Diagnoses Abnormal ultrasound Procedures Genetic Sendout: [facility] Maternal LONG TERM Sample Dk Molina MD [address] [facility] [address] [place] [address] Referral ID Status Reason Start Date Expiration Date Visits Re quested Visits Authorized [id number] Open 05/12/2023 05/11/2024 1 1 Specialty Diagnoses / Procedures Referred By Contac t Referred To Contact Lab Diagnoses Screening, , for malformation by ultrasound complicated by cardiovascular abnormality, single or unspecified fetus Abnormal ultrasound Procedures Genetic Sendout: Control sample for JAG1 testing on amniotic fluid sample Loli Aquino PA-C [address] [facility] [address] [place] [address] Referral ID Status Reason Start Date Expiration Date Visits Re quested Visits Authorized [id number] Open 05/21/2023 05/20/2024 1 1 Care Teams (unrecognized sec tion and content) Peanut Farmer Relationship Specialty Start Date End Date Juancho Glass MD [address] [place] [address] PCP - General Internal Medicine 09/26/21 Peanut Farmer Relationship Specialty Start Date End Date Juancho Glass MD [address] [place] [address] PCP - General Internal Medicine 04/18/23 ([place])[address] [place] [id number] 11/14/10 Shekhar Crouch, HIGH SCHO[employer] HVAC R INSTRUCTOR-FLOOR COVERER APPRENTICE [address] [facility] [address] [place] [address] Obstetrics Gynecology 03/21/23 [facility] [address] [place], [place] [id number] Genetic Counselor Genetics 05/01/23 Peanut Farmer Relationship Specialty Start Date End Date Juancho Glass MD [address] [place] [address] PCP - General Internal Medicine 04/18/23 ([place]), [place] [address] [place] [id number] 11/14/10 Shekhar Crouch APRN-[facility] [address] [place], [place] [address] Obstetrics Gynecology 03/21/23 [facility] [address] [place], [place] [id number] Genetic Counselor Genetics 05/01/23 FOR RECORDS PERTAINING TO PATIENTS WHO ARE OR HAVE BEEN ENROLLED IN A CHEMICAL DEPENDENCY/SUBSTANCEABUSE PROGRAM, SOME INFORMATION MAY BE OMITTED. This clinical summary was aggregated from multiple sources. Caution should be exercised in using it in the provision of clinical care. This summary normalizes information from multiple sources, and as a consequence, information in this document may materially change the coding, format and clinical context of patient data. In addition, data may be omitted in some cases. CLINICAL DECISIONS SHOULD BE BASED ON THE PRIMARY CLINICAL RECORDS. [facility]. provides no warranty or guarantee of the accuracy or completeness of information in this document.
== END | disposition home or self-care (01) ==
LOC: LAB 14:02
PROVIDERS: PCP Internal Medicine; Referring Provider Obstetrics & Gynecology; Visit Provider Obstetrics & Gynecology
DX: Z34.90 Encounter for supervision of normal pregnancy, unspecified, unspecified trimester (principal); Z3A.00 Weeks of gestation of pregnancy not specified
CPT/HCPCS: 36415; 82950; 85025; 86703; 86780; 86850; 86900; 86901

== ENCOUNTER → 2023-07-14 | Outpatient (CLI) | payer MEDICAID, SELFPAY | END | disposition home or self-care (01) | LOC: LAB 09:27 | PROVIDERS: PCP Internal Medicine; Referring Provider Nurse Practitioner; Visit Provider Nurse Practitioner | DX: O09.893 Supervision of other high risk pregnancies, third trimester (principal); Z3A.00 Weeks of gestation of pregnancy not specified | CPT/HCPCS: 87086; 87088; 87186; 87491; 87591 ==

== ENCOUNTER → 2023-07-28 | Outpatient (CLI) | payer MEDICAID, SELFPAY | END | disposition home or self-care (01) | LOC: LABSPEC 08:29 | PROVIDERS: PCP Internal Medicine; Visit Provider Nurse Practitioner | DX: Z36.85 Encounter for antenatal screening for Streptococcus B (principal) | CPT/HCPCS: 87081 ==

== ENCOUNTER → 2023-10-07 | Outpatient (CLI) | payer MEDICAID, SELFPAY | END | disposition home or self-care (01) | LOC: LABSPEC 12:24 | PROVIDERS: PCP Internal Medicine; Referring Provider Surgery; Visit Provider Surgery | DX: N61.1 Abscess of the breast and nipple (principal) | CPT/HCPCS: 87070; 87075; 87077; 87186; 87205 ==

== ENCOUNTER 2023-10-10 21:41 | Emergency (ER) | payer MEDICAID, SELFPAY ==
[2023-10-10 21:42] VITALS: BP 136/74; PULSE 77; RESP 16; TEMP 36.7; O2SAT 100; BMI 22.8
[2023-10-10] MEDS: Piperacil/Tazobactam 3.375 GM in 0.9% Normal Saline (50mL MB+) 50 ML IV (22:18)
[2023-10-10] MEDS: 0.9% Normal Saline (1000mL) 1,000 ML 999 ML IV (22:18)
[2023-10-10] MEDS: HYDROmorphone 1 MG/ML Syringe IV (22:19)
[2023-10-10] MEDS: Lidocaine 2% /Epi 1:100 (20ml) 20 ML VIAL INFILT (22:19)
[2023-10-10] MEDS: Ondansetron 4 MG/2 ML Vial IV (22:19)
--- NOTE | 2023-10-10 22:24 | EX.ED.DYSGE1 ---
HPI History of Present Illness Chief Complaint: Wound Informant: patient and family Narrative Narrative: Patient is a 23-year-old female with past medical history of depression. She developed mastitis at the end of August and was placed on antibiotics. Despite this she developed a secondary abscess. She states that she is on her second round of antibiotics and saw her MICROSTRATEGY REPORTS DEVELOPER recently where she had needle aspiration. Despite the aspiration and second round of antibiotics she has now had increasing redness pain and swelling to the area. She denies any active drainage or discharge. She states that there is been no fever or chills. She denies any history of immunosuppression. She states that the area has increased in size and pain in the last 24 hours and with the worsening symptoms comes in for evaluation [facility] Medical History Left breast abscess Pelvic pain Wears glasses Depression Scoliosis Back pain Smoker Chest pain Lab test negative for COVID-19 virus Genital herpes affecting Anxiety Home Medications ?Medication ?Instructions ?Recorded ?Last Taken ?Type bupropion HCl 75 mg tablet 75 mg PO TID 10/07/23 Unknown History doxycycline hyclate 100 mg capsule 100 mg PO BID #20 caps 10/07/23 Unknown Rx melatonin 3 mg capsule 3 mg PO HS PRN 10/07/23 Unknown History propranolol 10 mg tablet 10 mg PO .PRN Anxiety 10/07/23 Unknown History Allergy/AdvReac Type Severity Reaction Status Date / Time No Known Allergies Allergy Verified 10/10/23 21:46 Family History Aunt Breast cancer Surgical History (Updated 10/09/23 @ 10:47 by Nichelle Truong) History of incision and drainage History of dilatation and curettage No significant past surgical history Social History adopted: No household members: spouse, children and other details: FOB mother housing: house number of children: 1 current occupational status: unemployed pets and animals: Yes pets and animals: dog(s) history of recent travel: No sexually active: Yes Smoking Status: Current some day smoker tobacco type: e-cigarettes second hand exposure: Yes alcohol intake: never substance use type: does not use well-balanced diet: about half the time caffeine: Yes eating out: 1-3 times/week what type of physical activity do you participate in: none seatbelt use: always do you feel safe at home: Yes additional social history: Spouse- Da CEJA ROS ED Constitutional Constitutional ED: Denies chills or fever(s) ENT ENT ED: Denies sore throat Cardiovascular Cardiovascular: Denies chest pain Respiratory/Chest Respiratory/Chest: Denies cough or dyspnea Gastrointestinal Gastrointestinal: Denies abdominal pain, diarrhea, nausea or vomiting Genitourinary Genitourinary ED: Denies dysuria Musculoskeletal Musculoskeletal: Reports other Details: Positive chest wall pain Integumentary Reports abscess Neurologic Neurologic: Denies headache(s) Hematologic/Lymphatic Hematologic/Lymphatic: Denies easy bleeding or easy bruising EXAM Physical Exam Const Vital Signs: 10/10/23 21:42 10/10/23 23:27 Temperature 98.1 F 97.8 F Temperature Source Temporal Pulse Rate 77 71 Respiratory Rate 16 16 Blood Pressure 136/74 H 128/77 H Blood Pressure Mean 94 94 Pulse Ox 100 99 Oxygen Delivery Method Room Air Positive well nourished and well developed General Appearance ED: well developed HEENT HEENT Narrative: Normocephalic atraumatic Eyes PERRL and EOMs intact bilaterally General Eye ED: Negative for pale conjunctiva or scleral icterus Neck supple Neck Narrative: No nuchal rigidity or meningeal signs Chest Wall Chest Narrative: The left breast is edematous with asymmetric erythema and warmth extending from the left outer quadrant into the left upper lateral quadrant. There is a 1 x 2 cm area of fluctuance in the center of this most consistent with abscess. There is no active drainage or discharge from the site and no lymphangitic streaking. No left axilla lymphadenopathy noted. No nipple discharge present Resp normal respiratory effort and clear to auscultation bilaterally Cardio regular rate and regular rhythm Extremity normal to inspection Neuro oriented x3, CN's II-XII intact bilaterally and no sensory deficits noted Sensorium / Orientation: alert Motor Exam: strength 5/5 throughout Psych mental status grossly normal Skin Skin Narrative: Patient has area of cellulitis with abscess along the left breast as documented above MDM MDM MDM Narrative Medical decision making narrative: Patient arrived to ER with stable vitals and reported that she has been dealing with a left breast infection for approximately 1 month. She is currently on antibiotics. She denies any history of immunosuppression. Differential diagnosis is for left breast cellulitis with abscess versus mastitis versus breast mass/cancer versus septicemia. At this time as the patient's vitals are stable and she is on antibiotics concern for sepsis is low and I do not feel there is need for laboratory studies. We discussed obtaining formal ultrasound to check for drainable fluid pocket versus breast mass but the patient states that this is already been scheduled as an outpatient and therefore was not performed at this time. As her exam is indicating she has now developed a left breast abscess I did elect to perform an incision and drainage as documented below. Following this that she is currently on antibiotics and has no signs of systemic infection is otherwise safe for discharge Patient had the left breast cleaned with chlorhexidine. It was anesthetized with 8 mL of 2% lidocaine with epinephrine and local fashion. A #11 blade was used to make a 1.5 cm incision over top the area of fluctuance. A large amount of appearing material was expressed. Loculations were dissected with a needle segovia. The wound was copiously irrigated with normal saline. Then half-inch iodoform gauze was packed into the wound. Patient tolerated procedure well without complication History & Record Review Discussion w/independent historian: Patient and Family Discharge Plan Triage Chief Complaint: Wound ED Provider: Gabe Rendon Dx/Rx/DC Orders Clinical Impression: Left breast abscess, Depression Instructions: ED Abscess Incision And Drainage Prescriptions: No Action bupropion HCl 75 mg tablet 75 mg PO TID Rx Instructions: administer 6 hours apart melatonin 3 mg capsule 3 mg PO HS PRN propranolol 10 mg tablet 10 mg PO .PRN doxycycline hyclate 100 mg capsule 100 mg PO BID Qty: 20 0RF Primary Care Provider: Juancho Caldwell Referrals: Juancho Caldwell MD [Primary Care Provider] - Activity Restrictions/Additional Instructions: Please continue the antibiotic and keep your appointment for Friday. Remove the packing in 48-72 hours and return to the ER if you have any further concerns Print Language: Sami Disposition Disposition: Home, Self Care Discharge Date/Time: 10/10/23 23:30
[2023-10-10 23:27] VITALS: BP 128/77; PULSE 71; RESP 16; TEMP 36.6; O2SAT 99
== END 2023-10-10 23:30 | disposition home or self-care (01) ==
PROVIDERS: Emergency Provider Emergency Medicine; PCP Internal Medicine; Visit Provider Emergency Medicine
DX: N61.1 Abscess of the breast and nipple (principal); F32.A Depression, unspecified; F17.290 Nicotine dependence, other tobacco product, uncomplicated; Z79.899 Other long term (current) drug therapy
CPT/HCPCS: 10060; 99283; J7030; A4216; J2405